=== PATIENT | female | born 1945 | race Caucasian/White ===

== ENCOUNTER 2018-08-18 09:47 | Inpatient (IN) ==
--- NOTE | 2018-07-27 11:00 | PAT Medication Instructions ---
Medication Instructions Date of Service July 27, 2018 Home Medications amlodipine 5 mg PO QAM ascorbic acid (vitamin C) 500 mg PO DAILY aspirin [Aspir-81] 81 mg PO DAILY atorvastatin 20 mg PO QAM cholecalciferol (vitamin D3) 1,000 unit PO DAILY estradiol 1 dose TOPICAL DIRECTED furosemide 20 mg PO NEEDED garlic 1,000 mg PO DAILY lisinopril 20 mg PO QAM multivitamin [Multiple Vitamins] 1 tab PO DAILY multivitamin with minerals [Hair,Skin and Nails] 1 tab PO DAILY prednisone 20 mg PO NEEDED venlafaxine 75 mg PO QAM Continue as directed prednisone 20 mg PO NEEDED STOP taking 2 weeks before surgery garlic 1,000 mg PO DAILY STOP taking 24 hours before surgery estradiol 1 dose TOPICAL DIRECTED DO NOT take the morning of surgery ascorbic acid (vitamin C) 500 mg PO DAILY cholecalciferol (vitamin D3) 1,000 unit PO DAILY furosemide 20 mg PO NEEDED lisinopril 20 mg PO QAM multivitamin [Multiple Vitamins] 1 tab PO DAILY multivitamin with minerals [Hair,Skin and Nails] 1 tab PO DAILY Take morning of surgery With a small sip of water, OTHERWISE NOTHING TO EAT OR DRINK AFTER MIDNIGHT: amlodipine 5 mg PO QAM aspirin [Aspir-81] 81 mg PO DAILY atorvastatin 20 mg PO QAM venlafaxine 75 mg PO QAM Other Notes If you have any questions please call us at [phone] or [phone] or [phone] or [phone]
--- NOTE | 2018-07-27 11:10 | Anesthesiology Consultation ---
Date of Service July 27, 2018 Assessment & Plan (1) Encounter for pre-operative examination: Chart Review Chart Review: Acceptable Risk for Surgery and Patient seen in Pre Admission Testing Consults Requested cardiac (Dr. Santos (08/03)) Patient was seen by cardio on 08/03, who notes that she had an abnormal resting EKG, false positive. No ECHO evidence of old VA or inducible ischemia on dobutamine stress test. "At this time she is considered low risk for perioperative cardiac complications. No further cardiac testing is indicated at this time given her negative dobutamine stress test and benign findings on her outpatient monitor." Teaching & Discussion Pre-Anesthesia Teaching/Discussion Notes: Instructed NPO after midnight before surgery, except medications with 15 cc of water. Medication instructions provided according to the PAT guidelines. History Surgery Operation Date: 08/18/18 08:50 Proposed Procedures p Left Total Knee Arthroplasty - French Harris MD Height/Weight Height: 5 ft 6 in Weight: 86.7 kg Allergies Allergy/AdvReac Type Severity Reaction Status Date / Time No Known Allergies Allergy Verified 07/21/18 10:47 Medications Home Medications Medication Instructions Recorded Confirmed Last Taken amlodipine 5 mg PO QAM 07/21/18 07/21/18 07/20/18 ascorbic acid (vitamin C) [Vitamin 500 mg PO DAILY 07/21/18 07/21/18 Unknown C] aspirin [Aspir-81] 81 mg PO DAILY 07/21/18 07/21/18 07/20/18 atorvastatin 20 mg PO QAM 07/21/18 07/21/18 07/21/18 cholecalciferol (vitamin D3) 1,000 unit PO DAILY 07/21/18 07/21/18 Unknown [Vitamin D3] estradiol 1 dose TOPICAL UD 07/21/18 07/21/18 Unknown furosemide 20 mg PO UD PRN 07/21/18 07/21/18 Unknown garlic 1,000 mg PO DAILY 07/21/18 07/21/18 Unknown lisinopril 20 mg PO QAM 07/21/18 07/21/18 07/21/18 multivitamin [Multiple Vitamins] 1 tab PO DAILY 07/21/18 07/21/18 Unknown multivitamin with minerals 1 tab PO DAILY 07/21/18 07/21/18 Unknown [Hair,Skin and Nails] prednisone 20 mg PO UD PRN 07/21/18 07/21/18 Unknown venlafaxine 75 mg PO QAM 07/21/18 07/21/18 07/21/18 Past Medical History Medical History Bulging disc LUMBAR 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/VISIT PCP/CARDIO...STRESS TEST/HEART MONITOR, F/U ON 08/03/18 [facility] Hyperlipidemia Hypertension Nausea and vomiting after administration of anesthetic agent Osteoarthritis Past Surgical History Surgical History H/O lumbar discectomy L5 History of colonoscopy History of ear surgery RIGHT ACOUSTIC NEUROMA History of hand surgery LEFT TENDON History of total right knee replacement Past Anesthesia History No Hx of Anesthesia Complications and No Family Hx of Anesthesia Complications History of PONV Yes Motion Sickness Screening History of Motion Sickness: Yes Social History Smoking Status: Never smoker Do You Dip or Chew Tobacco: No Hx Alcohol Use: No Hx Substance Use: No substance use type: does not use Exercise / Class Metabolic Activity II 4-5 Yardwork/Stairs/Walk up hill (Able to climb FOS. Denies CP or SOB. ) Review of Systems Patient denies chest pain, shortness of breath, dyspnea on exertion, reflux, cough, wheezing, +palpitations +joint pain (knee, hands, back, neck) Physical Exam Vital Signs BP: 132/77 P: 64 R: 18 T: 97.4 SPO2: 96% on RA ENMT Mouth: + dentures (top only) and + poor dentition (on bottom) Thyromental Distance: > or= 3.5 Finger Breadths (3.5) Mallampati Class: III Neck normal visual inspection and trachea midline Respiratory normal respiratory effort Auscultation: lungs clear to auscultation bilaterally Cardiovascular Rate/Rhythm: regular rate and regular rhythm Heart Sounds: no murmur Vessels: no carotid bruit Neurologic moves all extremities Psychiatric Orientation: alert and oriented x 3 Testing Electrocardiogram Date: 06/01/18 Findings: + NSR @ (67) Sinus arrhythmia. Cannot rule out anterior infarct, age undetermined. When compared with ECG of 11/13/14, T wave inversion now evident in anterior leads. Chest X-Ray Date: 07/27/18 Findings: + NAD Stress Test Date: 07/06/18 Type: DSE Infusion terminated due to achieving MPHR. Patient denied chest discomfort. Frequent supraventricular ectopy noted during infusion, with brief runs non- sustained PSVT near peak infusion and early post-infusion; rare isolated ventricular ectopies noted. Laboratory Results 07/27/18 11:28 07/27/18 11:28 Blood Type O Positive 07/27/18 11:28 Antibody Screen NEGATIVE 07/27/18 11: PT 10.2 Seconds (9.0-12.0) 07/27/18 11: INR 1.0 (0.9-1.1) 07/27/18 11: APTT 23.9 Seconds (21.0-31.0) 07/27/18 11:28
[2018-07-27 11:46] LABS: Basophils # (auto) 0.02 K/uL (0-0.2); Basophils % (auto) 0.3 %; Eosinophils # (auto) 0.08 K/uL (0-0.5); Eosinophils % (auto) 1.3 %; Hematocrit (blood only) 40.9 % (37-47); Hemoglobin 13.7 g/dL (12.0-16.0); Immature Granulocytes # (auto) 0.01 K/uL (0.00-0.02); Immature Granulocytes % (auto) 0.2 %; Lymphocytes # (auto) 1.26 K/uL (1.2-3.4); Lymphocytes % (auto) 21.1 %; Mean Corpuscular Hgb Conc 33.5 g/dL (32-36); Mean Corpuscular Volume 92.5 fL (80-100); Mean Platelet Volume 10.8 fL (7.4-10.4); Monocytes # (auto) 0.68 K/uL (0.11-0.59); Monocytes % (auto) 11.4 %; Neutrophils # (auto) 3.93 K/uL (1.4-6.5); Neutrophils % (auto) 65.7 %; Platelet Count 179 K/uL (130-400); RDW Coefficient of Variation 13.9 % (11.5-14.5); RDW Standard Deviation 47.1 fL (36.4-46.3); Red Blood Count 4.42 M/uL (4.2-5.4); White Blood Count 5.98 K/uL (4.8-10.8)
[2018-07-27 11:54] LABS: Partial Thromboplastin Ratio 0.9; Partial Thromboplastin Time 23.9 Seconds (21.0-31.0); Prothrombin Time 10.2 Seconds (9.0-12.0)
--- NOTE | 2018-07-27 11:57 | XRay Report ---
XR chest Pre-admission PA/Lat CLINICAL HISTORY: 72 years-old Female presenting with preoperative assessment. TECHNIQUE: PA and lateral views of the chest were obtained. COMPARISON: 08/25/2011. FINDINGS: Cardiac silhouette top normal in size. Lungs and pleural spaces clear. Osseous structures normal. Upp er abdomen normal. IMPRESSION: 1. No acute cardiopulmonary disease. Electronically signed by: Ronnie Velasquez M.D. 07/27/2018 11:56 AM
[2018-07-27 14:25] LABS: BUN Creatinine Ratio 19.7 (10-20); Blood Urea Nitrogen 19 mg/dl (7-18); C Reactive Protein < 0.29 mg/dl (0-0.29); Calcium 8.7 mg/dl (8.5-10.1); Carbon Dioxide 28 mmol/L (21-32); Chloride 106 mmol/L (98-107); Creatinine Clr Calc Pharmacy 60.9 ml/min; Est GFR (African American) 70.7; Glucose 91 mg/dl (70-99); Potassium 3.7 mmol/L (3.5-5.1); Sodium 140 mmol/L (136-145)
--- NOTE | 2018-08-13 08:37 | History and Physical Report ---
DATE OF ADMISSION: 08/18/2018 CHIEF COMPLAINT: Left knee pain. HISTORY OF PRESENT ILLNESS: A 72-year-old female who presents for surgical treatment of her left knee. She is well-known to me from previous right knee replacement done in 2011. She is 7 years out and done well. She developed increased pain and discomfort on her left knee. She has been through extensive conservative treatment in the past without adequate relief. She had just been putting up with this as long as she can. Injections and oral medicines do not help much. Her walking tolerance is a couple of blocks at best. She has pain with every step. She has difficulty going up and down steps. The more she walks, the more it hurts. She would like to proceed with surgical treatment. PAST MEDICAL HISTORY: 1. Hypertension. 2. Elevated cholesterol. 3. History of a heart arrhythmia followed by Dr. Santos. 4. Low back pain. 5. Mild obesity with a BMI of 31. PAST SURGICAL HISTORY: 1. Right knee replacement done 09/2011. 2. Left knee scope done in 2010. 3. Back surgery. 4. Ear surgery. ALLERGIES: None. CURRENT MEDICINES: 1. Amlodipine 5 mg a day. 2. Atorvastatin 120 mg. 3. Estradiol. 4. Furosemide 20 mg. 5. Lisinopril 20 mg. 6. Prednisone 20 mg a day as needed. 7. Prochlorperazine 5 mg every 4 hours for nausea. 8. Venlafaxine 75 mg a day. 9. Zantac 150 mg twice a day. SOCIAL HISTORY: A 72-year-old white female. She is from . She is . FAMILY HISTORY: Noncontributory. REVIEW OF SYSTEMS: Negative for diabetes. Denies any chest pain or shortness of breath. No history of DVT or PE. PHYSICAL EXAMINATION: GENERAL: Reveals a healthy pleasant, middle-aged female, looks to be in good health. HEENT: Benign. NECK: Supple. No lymphadenopathy. LUNGS: Clear to auscultation. HEART: Has a regular rate and rhythm. ABDOMEN: Soft, nontender, nondistended. EXTREMITIES: Grossly neurovascularly intact except as follows: Examination of the knee reveals patient walks with bit of a limp. She has got varus alignment to her knee. Bony hypertrophy medially. Small knee effusion. Range of motion 5-110. No instability. She is neurologically intact. Examination of the right knee reveals well-healed incision. Neutral alignment to her knee. No knee effusion. Range of motion 0-120. X-RAYS: X-rays of the left knee reviewed. Shows advanced left knee medial compartment DJD. She has complete loss of medial joint space. She has subchondral sclerosis. The right knee replacement looks to be in good position. ASSESSMENT: A 72-year-old white female with 7 years out from right knee replaced with advanced left knee degenerative joint disease. She has failed conservative treatment and would like to proceed with left knee replacement. PLAN: We will take her to the operating room and do a left total knee replacement. The risks and benefits of this procedure were explained to the patient including but not limited to DVT, PE, , infection, neurological injury, vascular injury, bleeding problem, pain, limited range of motion, stiffness, failure to relieve symptoms, incomplete relief of symptoms, need for further surgery future, fracture, leg length inequality, nerve palsy, etc. The patient understands and desires to proceed. Informed consent was obtained. She does have a history of some steroid use with fairly significant doses. We may give her some stress dose steroids preoperatively. She is noticed to hold her lisinopril the morning of surgery. As far as discharge plans, she is planning to be discharged home and do outpatient therapy.
[~2018-08-18 09:47] MED LIST: ACETAMINOPHEN 500 MG TAB PO SCH; BUPIVACAINE 0.5 % 5 MG/1 ML PF 10ML VIAL ONE; BUPIVACAINE LIPOSOME/PF 266 MG, BUPIVACAINE/EPINEPHRINE 50 ML, SODIUM CHLORIDE 0.9% 30 ... INFIL SCH; CEFAZOLIN 2000MG 2,000 MG/15 ML SYR IV SCH; EPINEPHrine INJ 1 MG/ML AMP ONE; FAMOTIDINE 20 MG TAB PO SCH; GABAPENTIN 300 MG PO SCH; LR 500ML BOLUS, THEN 15ML/HR IV SCH; LR 60ML/HR IV SCH; METOCLOPRAMIDE HCL 10 MG TABLET PO SCH; ROPIVACAINE 0.5% 5 MG/ML 30 ML VIAL ONE; TRANEXAMIC ACID 1,000 MG **IV Intra-op IV SCH
--- NOTE | 2018-08-18 11:08 | History & Physical Bridge Note ---
Date of Service August 18, 2018 History & Physical Bridge Note I have examined the patient, reviewed the History & Physical and in the interval since the performance of the History & Physical I have noted the following changes of clinical significance: no changes noted
[2018-08-18] MEDS ORDERED: MIDAZOLAM HCL 1 MG/ML 2ML VIAL ONE (13:02)
[2018-08-18] MEDS ORDERED: SODIUM CHLORIDE 0.9% PF 50 ML VIAL ONE (13:07)
[2018-08-18] MEDS ORDERED: BACITRACIN INJ 50,000 UNIT VIAL ONE (13:07)
[2018-08-18] MEDS ORDERED: BUPIVACAINE LIPOSOME 1.3% 266 MG/20 ML VIAL ONE (13:08)
[2018-08-18] MEDS ORDERED: BUPIVACAINE 0.25% 30 ML VIAL ONE (13:10)
[2018-08-18] MEDS ORDERED: LIDOCAINE HCL 2% 2 ML VIAL/AMP(20MG/ML) INFIL ONE (14:20)
[2018-08-18] MEDS ORDERED: PROPOFOL IV EMULSION 10 MG/ML 20 ML VIAL IV ONE (14:20)
--- NOTE | 2018-08-18 15:38 | Post Operative Brief Note ---
Immediate Post Op Note v1 Date of Surgery August 18, 2018 Pre & Post Diagnosis Operation Date: 08/18/18 12:30 Pre-Op Diagnosis: Left Knee Degenerative Joint Disease Post-Op Diagnosis: Left Knee Degenerative Joint Disease Procedure Operation Date: 08/18/18 12:30 Actual Procedures p Left Total Knee Replacement(Left) - French Harris MD Surgeon French Harris MD [employer] Guidance Counselor Jean Claude, PAC Estimated Blood Loss 50 Findings Consistent with Post-Op Diagnosis Fluids 1100 cc Specimens Left Knee Anesthesia Type Spinal MAC Complications none Disposition Accompanied Patient To Recovery: No Disposition: Recovery Room
--- NOTE | 2018-08-18 15:56 | XRay Report ---
XR knee LT 2V routine CLINICAL HISTORY: Surgical Post Op COMPARISON: None. DISCUSSION: Total left knee arthroplasty. Good contact between prosthetic and underlying bone. Expect ed soft tissue postoperative change. IMPRESSION: Anatomic alignment post total left knee arthroplasty. The above report was generated using voice recognition software. It may contain grammatical, syntax or spelling errors. Electronically signed by: Alber Owens M.D. 08/18/2018 3:54 PM
[2018-08-18] MEDS ORDERED: predniSONE 20 MG TAB PO PRN (16:50)
[2018-08-18] MEDS ORDERED: SODIUM CHLORIDE 0.9% 1000ML 1,000 ML IV SCH (16:50)
[2018-08-18] MEDS ORDERED: ALUMINUM/MAGNESIUM SUSP 30 ML UDC PO PRN (16:50)
[2018-08-18] MEDS ORDERED: FUROSEMIDE 20 MG TAB PO PRN (16:50)
[2018-08-18] MEDS ORDERED: HYDROmorphone INJ 0.5 MG/0.5 ML SYR IV PRN (16:50)
[2018-08-18] MEDS ORDERED: NALOXONE HCL 0.4 MG/1 ML VIAL/CARP IV PRN (16:50)
[2018-08-18] MEDS ORDERED: BISACODYL 10 MG SUPP PR PRN (16:50)
[2018-08-18] MEDS ORDERED: MAGNESIUM HYDROXIDE SUSP 30 ML UDC PO PRN (16:50)
[2018-08-18] MEDS ORDERED: METOCLOPRAMIDE HCL INJ 5 MG/ML 2 ML VIAL IV PRN (16:50)
--- NOTE | 2018-08-18 17:08 | Anesthesiology Progress Note ---
Date of Service August 18, 2018 Anesthesia Post Procedure Vital Signs Vital Signs: Temp Pulse Pulse Resp BP Pulse Ox 08/18/18 17:06 61 17 132/83 98 08/18/18 16:30 36.3 C L 58 L 16 136/82 99 08/18/18 16:29 55 L 18 123/74 98 08/18/18 16:15 56 L 17 129/86 100 08/18/18 16:00 36.3 C L 60 13 135/76 100 08/18/18 15:50 62 18 121/61 100 08/18/18 15:44 36.3 C L 65 15 110/56 L 100 08/18/18 10:21 36.4 C L 74 20 170/84 H 94 Notes Mental Status: alert / awake / arousable Patient Amnestic to Procedure: Yes Nausea / Vomiting: adequately controlled Pain: adequately controlled Airway Patency, RR, SpO2: stable & adequate BP & HR: stable & adequate Hydration State: stable & adequate Neuraxial Anesthesia: was administered and sensory block is resolving Anesthetic Complications: no major complications apparent
[2018-08-18] MEDS: ESTRADIOL TRANSDERMAL SYSTEM 0.1 MG TDSY TD SCH (18:07)
[2018-08-18] MEDS: FERROUS GLUCONATE 324 MG TAB PO SCH (18:08)
[2018-08-18] MEDS: KETOROLAC TROMETHAMINE 15 MG/ML VIAL IV SCH (18:08)
[2018-08-18] MEDS: CEFAZOLIN 2000MG 2,000 MG/15 ML SYR IV SCH (20:25)
[2018-08-18] MEDS: ASPIRIN 81 MG ECTAB PO SCH (20:25)
[2018-08-18] MEDS: ACETAMINOPHEN 500 MG TAB PO SCH (20:26)
[2018-08-18] MEDS: DOCUSATE SODIUM 100 MG CAP PO SCH (20:26)
[2018-08-18] MEDS: SENNA 8.6 MG TAB PO SCH (20:26)
[2018-08-18] MEDS ORDERED: TRANEXAMIC ACID 1,000 MG in 0.9 % SODIUM CHLORIDE 100 ML IV SCH (21:30)
--- NOTE | 2018-08-19 00:14 | Operative Report ---
DATE OF OPERATION: 08/18/2018 SURGEON: French Harris MD TRACK HOE OPERATOR: ELIU Aceves PREOPERATIVE DIAGNOSIS: Left knee degenerative joint disease. POSTOPERATIVE DIAGNOSIS: Left knee degenerative joint disease. PROCEDURE PERFORMED: Left cemented posterior stabilized total knee arthroplasty. COMPLICATIONS: None. ESTIMATED BLOOD LOSS: 50 mL FLUID REPLACEMENT: 1100 mL crystalloid fluid replacement. TOURNIQUET TIME: 51 minutes at 300 mmHg. ANESTHESIA: Spinal with adductor canal block. DRAINS: None. SPECIMENS: Left knee sent for pathology. OPERATIVE INDICATIONS: The patient is a 72-year-old female who has had a long history of knee problems. She underwent a right knee replacement years ago and has done well from this but had quite a bit of pain initially. She has been putting up with a lot of arthritic pains in her left knee over the past several years. She has been through extensive conservative treatment without adequate relief. She has now elected to proceed with total knee arthroplasty. OPERATIVE FINDINGS: Operative findings were advanced left knee DJD with grade 4 [id number] disease in the medial and patellofemoral compartments. She had a varus deformity to her knee with a moderate sized knee effusion. OPERATIVE IMPLANTS: Operative implants consisted of: 1. Biomet Vanguard size left 62.5 posterior stabilized femoral component. 2. Biomet size 67 tibial tray. 3. A 10mm posterior stabilized polyethylene insert. 4. The 28 x 8 all-poly patella. OPERATIVE PROCEDURE: The patient was taken to the operating room, identified and placed on the operating table in supine position. All contact areas were appropriately padded. IV antibiotics were provided by anesthesia team. A spinal anesthetic and adductor canal block had been provided in the holding area. Abebe catheter was placed in sterile fashion. The left thigh tourniquet was then placed and left lower extremity was then prepped and draped in usual sterile fashion. Left leg was elevated and exsanguinated with Esmarch and tourniquet placed at 300 mmHg. An anterior approach to the left knee was then performed through a longitudinal incision centered over the patella. Sharp dissection was carried through subcutaneous tissues down to the level of the extensor mechanism. Medial parapatellar arthrotomy incision was made. Some subperiosteal dissection was carried out medially. The fat pad was resected from beneath the patellar tendon. Lateral patellofemoral ligament was released. The patella was everted and knee was flexed. The osteophytes were taken off the distal femur. The ACL and PCL were released from the distal femur and the tibia subluxated anteriorly. The external tibial alignment jig was then placed in the anterior face of the tibia and adjusted 14 mm medially. Proximal tibial cut was made to remove a millimeter of bone from most deficient aspect of the medial tibial plateau. The tibia was sized to a size 67. Some osteophytes were taken off medial and posteromedially. Attention was then drawn to the femur. The distal femur was entered with a sharp drill bit. Intramedullary canal was suctioned. The left 5 degree valgus cutting guide was placed. Distal femoral cutting block was pinned in place. Distal femoral cut was made to take an additional 3 mm of bone off the distal femur. Femur was then sized to a size 62.5. The AP cutting block was pinned parallel to the epicondylar axis, which was 5 degrees of external rotation. The anterior cut, anterior chamfer cut, posterior cut, posterior chamfer cuts were made. Box cutting guide was placed and adjusted slightly lateral and the box cut was made. The knee was flexed. The remnants of the medial and lateral menisci were excised. The osteophytes were taken off the posterior aspect of the femur. A trial femoral component was placed. Tibial tray was pinned in maximum external rotation and drill and stem punch were used to create defect in proximal tibia for the tibial tray. The knee was then trialed and the 10 mm insert fit most appropriately. Attention was then drawn to the patella. The patella was cleaned of all soft tissues. Patella thickness measured 20 mm in thickness. It was cut down to 12. It was sized to a size 28 patella. Lug holes were drilled for a 28 patella. Lateral osteophyte was removed. Patella button was placed. Knee was taken through range of motion, patella tracked nicely with no thumbs test. Attention was then drawn towards placement of permanent components. All trial components were removed. Bone plug was placed in the distal femur to limit blood loss. A double batch of Palacos G cement was mixed. A Biomet Vanguard size 62.5 left posterior stabilized femoral component, size 67 tibial tray, 10 mm posterior stabilized polyethylene insert, 28 x 8 all-poly patella then cemented in place. Knee was brought into full extension until cement hardened. A final cement check was then performed. Pericapsular tissues were injected with a total of 100 mL of a combination of 20 mL of Exparel, 30 mL of normal saline, 50 mL of 0.25% Marcaine with epinephrine. The patient did receive 1 g of tranexamic acid. The tourniquet was then let down for final tourniquet time of 51 minutes. Hemostasis was assured with the use of electrocautery. The extensor mechanism was then closed with a combination of #1 PDS suture and #1 Vicryl suture in a [id number] fashion. Extensor mechanism was checked and found to be intact. The subcutaneous tissue was then closed with #2 Dexon suture in buried interrupted fashion. Skin was closed with skin jeannette. Leg was then cleaned and dried and a sterile dressing of Xeroform, 4 x 4, sterile cast padding, and Anil bandage were applied. The patient then transferred to the recovery room in stable condition. The patient tolerated the procedure without complications. All needle and sponge counts were correct at the end of the operation. I attest to the content of the Intraoperative Record and any orders documented therein. Any exception s are noted below.
[2018-08-19] MEDS: KETOROLAC TROMETHAMINE 15 MG/ML VIAL IV SCH ×5 (00:16→23:35)
[2018-08-19] MEDS: ACETAMINOPHEN 500 MG TAB PO SCH ×3 (05:41→21:32)
[2018-08-19] MEDS: CEFAZOLIN 2000MG 2,000 MG/15 ML SYR IV SCH (05:42)
[2018-08-19 06:09] LABS: Hematocrit (blood only) 39.3 % (37-47); Hemoglobin 13.2 g/dL (12.0-16.0); Mean Corpuscular Hgb Conc 33.6 g/dL (32-36); Mean Corpuscular Volume 93.6 fL (80-100); Mean Platelet Volume 11.2 fL (7.4-10.4); Platelet Count 116 K/uL (130-400); RDW Coefficient of Variation 13.7 % (11.5-14.5)
[2018-08-19 06:41] LABS: BUN Creatinine Ratio 15.5 (10-20); Calcium 8.1 mg/dl (8.5-10.1); Creatinine Clr Calc Pharmacy 59.2 ml/min; Est GFR (Non-African American) 59.5; Potassium 3.7 mmol/L (3.5-5.1)
[2018-08-19] MEDS: ONDANSETRON INJ 2 MG/ML 2 ML VIAL IV PRN ×2 (07:48→14:18)
[2018-08-19] MEDS: TRAMADOL HCL 50 MG TABLET PO PRN (08:56)
[2018-08-19] MEDS: MULTIVITAMIN TAB PO SCH ×2 (08:58→09:18)
[2018-08-19] MEDS: DOCUSATE SODIUM 100 MG CAP PO SCH ×3 (08:58→20:28)
[2018-08-19] MEDS: ASCORBIC ACID 500 MG TAB PO SCH (08:59)
[2018-08-19] MEDS: VENLAFAXINE HCL XR 75 MG CAPXR PO SCH (08:59)
[2018-08-19] MEDS ORDERED: MULTIVITAMIN WITH MINERALS PO SCH (09:00)
[2018-08-19] MEDS: CHOLECALCIFEROL 1,000 UNITS TAB PO SCH (09:00)
[2018-08-19] MEDS: LISINOPRIL 20 MG TAB PO SCH (09:00)
[2018-08-19] MEDS: AMLODIPINE BESYLATE 5 MG TAB PO SCH (09:01)
[2018-08-19] MEDS: ATORVASTATIN 20 MG TAB PO SCH (09:02)
[2018-08-19] MEDS: ESTRADIOL TRANSDERMAL SYSTEM 0.1 MG TDSY TD SCH (09:14)
[2018-08-19] MEDS: FERROUS GLUCONATE 324 MG TAB PO SCH ×2 (10:29→17:48)
[2018-08-19] MEDS: ASPIRIN 81 MG ECTAB PO SCH ×2 (10:29→20:27)
--- NOTE | 2018-08-19 10:58 | Progress Note ---
DATE: 08/19/2018 SUBJECTIVE: The patient is a 72-year-old female postop day #1 of her left total knee arthroplasty. She is doing pretty well on today's visit. Pain is very well controlled. She denies any chest pain, shortness of breath. She is not feeling dizzy or lightheaded. OBJECTIVE: VITAL SIGNS: Her blood pressure is 152/81, pulse 90, respiratory rate 16, temperature is 36.6, 97% on room air. GENERAL: Reveals a 72-year-old pleasant female. She is awake, alert and oriented. She is very comfortable. No real description of any pain. EXTREMITIES: Examination of her left leg, she is able to dorsiflex and plantarflex her foot and her ankle without difficulty. She has no ____ tenderness. NEUROLOGIC: Intact. CURRENT LABORATORY DATA: Shows a white blood cell count of 7.8, hemoglobin 13.2, hematocrit 39.3. Electrolytes are stable. ASSESSMENT AND DIAGNOSES: A 72-year-old female postop day #1 from a total left knee arthroplasty. She is doing very well in the short-term period. Pain is well controlled. She is neurologically intact. PLAN: 1. At this time, continue with DVT prophylaxis including TERRANCE hose stockings, SCDs and aspirin twice a day. 2. PT, OT. She can be weightbearing as tolerated on her left lower extremity. 3. Continue with current pain control regimen. 4. Disposition: Planning on discharge to home with Home Health Services tomorrow.
[2018-08-19] MEDS: SENNA 8.6 MG TAB PO SCH (20:28)
[2018-08-20] MEDS: ONDANSETRON INJ 2 MG/ML 2 ML VIAL IV PRN (03:48)
[2018-08-20] MEDS: ACETAMINOPHEN 500 MG TAB PO SCH (05:25)
[2018-08-20] MEDS: KETOROLAC TROMETHAMINE 15 MG/ML VIAL IV SCH (05:25)
[2018-08-20] MEDS: DOCUSATE SODIUM 100 MG CAP PO SCH (09:13)
[2018-08-20] MEDS: AMLODIPINE BESYLATE 5 MG TAB PO SCH (09:13)
[2018-08-20] MEDS: FERROUS GLUCONATE 324 MG TAB PO SCH (09:13)
[2018-08-20] MEDS: ASCORBIC ACID 500 MG TAB PO SCH (09:13)
[2018-08-20] MEDS: ATORVASTATIN 20 MG TAB PO SCH (09:13)
[2018-08-20] MEDS: CHOLECALCIFEROL 1,000 UNITS TAB PO SCH (09:13)
[2018-08-20] MEDS: MULTIVITAMIN TAB PO SCH ×2 (09:14→09:20)
[2018-08-20] MEDS: ASPIRIN 81 MG ECTAB PO SCH (09:14)
[2018-08-20] MEDS: VENLAFAXINE HCL XR 75 MG CAPXR PO SCH (09:14)
[2018-08-20] MEDS: LISINOPRIL 20 MG TAB PO SCH (09:15)
[2018-08-20] MEDS: TRAMADOL HCL 50 MG TABLET PO PRN (09:19)
--- NOTE | 2018-08-21 07:41 | Discharge Summary ---
Date of Service August 29, 2018 Discharge Data Consultations 08/18/18 16:50 Consult Case Management - Discharge Planning Routine Procedures Performed Operation Date: 08/18/18 12:30 Actual Procedures p Left Total Knee Replacement(Left) - French Harris MD
--- NOTE | 2018-08-27 22:49 | Discharge Summary ---
ADMITTING PHYSICIAN AND SURGEON: French Harris MD ADMITTING DIAGNOSIS: Left knee degenerative joint disease. SURGERY PERFORMED: Left total knee arthroplasty. SECONDARY DIAGNOSES: Hypertension, elevated cholesterol, history of a heart arrhythmia, low back pain and mild obesity. CONSULTS: None obtained. HISTORY AND PHYSICAL EXAMINATION: Well documented in the patient's chart. HOSPITAL COURSE: The patient was admitted on 08/18/2018, underwent total knee arthroplasty, tolerated the procedure well. There were no complications. She was transferred to the PACU postoperatively and later to the Orthopedic for further care. She was given Ancef for antibiotic prophylaxis, TERRANCE stockings and sequential compression devices and aspirin for deep venous thrombosis prophylaxis. Hemoglobin, hematocrit and vital signs were monitored during hospital stay and remained stable. She did not require any blood transfusions. There were no complications. By postoperative day 1, she was tolerating a regular diet, pain was controlled with oral pain medicine. She was participating in physical therapy. On postoperative day 1, she was discharged home. She was given printed discharge instructions including new prescriptions for extra strength Tylenol, aspirin, iron supplement and tramadol. Continue her home medicines exception of her home dose of aspirin which was changed. Continue physical therapy, weightbearing as tolerated, TERRANCE stockings and follow up approximately 2 weeks postoperatively or sooner if any problems or concerns.
== END 2018-08-20 09:46 | disposition home or self-care (01) | DRG 470 ==
LOC: ASU 09:47 → 3E 15:43

== ENCOUNTER 2025-02-22 23:51 | Observation (INO) ==
--- NOTE | 2025-02-23 00:05 | Emergency Department Note ---
Impression & Plan Lower gastrointestinal hemorrhage Admission ED Provider Note HPI: History obtained from patient. The patient is a 79-year-old female who presents the emergency department with a chief complaint of lower abdominal pain as well as blood per rectum today. Patient states that her symptoms started at about 4 PM. Patient states that every 30 to 40 minutes she would have another loose bowel movement. Patient denies any vomiting. Patient states she is not on any blood thinners. On arrival here to the ED the patient is mildly hypertensive, she is otherwise hemodynamically stable and appears to be in no acute distress. ROS: - Per HPI Differential Diagnosis: Hemorrhagic external hemorrhoids, hemorrhagic internal hemorrhoids, other lower GI bleed, acute colitis, diverticulitis flare, viral gastroenteritis, ischemic colitis, amongst other potential pathologies. *Outpatient medications and allergy history reviewed. PE: General: Alert HEENT: Normocephalic, trachea midline Eyes: Extraocular eye movement is intact, no scleral erythema Pulmonary: Clear to auscultation bilaterally, no wheezing Cardio: Regular rate and rhythm GI: Abdomen is soft to palpation, there is moderate tenderness in the lower abdomen bilaterally to palpation, rectal examination performed with female RN at the bedside shows a large external hemorrhoid without any obvious active bleeding from the hemorrhoid itself, there is some blood surrounding the rectal vault : No suprapubic tenderness MSK: No evidence of trauma or malformation of the extremities, no edema Skin: No evidence of rash Neuro: Alert, no focal deficits Psychiatric: Cooperative INDEPENDENT INTERPRETATIONS: playground monitor: (As interpreted by myself): - An order was placed for continuous cardiac monitoring - Patient was noted to be in sinus rhythm with a rate of 70 EKG: (As interpreted by myself): Rate: 67 Rhythm: Sinus rhythm Intervals: Within normal limits ST changes: No ST elevation Time: 0021 Interventions provided in ED: - IV fluid bolus, IV morphine, IV Zofran Medical Decision Making: IV was established and lab work obtained, patient was placed on property assessment monitor. Lab work shows no leukocytosis, hemoglobin is normal, platelet count is slightly low at 122, CMP does not show any evidence of any critical findings. Troponin is slightly elevated at 15.6, EKG per my interpretation shows sinus rhythm without any acute ischemic changes. Urinalysis does not show any evidence of blood or infection. CT imaging of the abdomen pelvis was obtained and shows evidence of a diffuse colitis more severe in the left hemicolon. On my reevaluation the patient states that she is having some worsening abdominal pain and therefore she was agreeable for IV analgesia. Patient had several other bowel movements while she was here in the ED that were grossly bloody according to the bedside RN. Stool PCR therefore was ordered, following my evaluation of the patient we will plan for admission given her ongoing lower GI bleeding, elevated troponin, and finding of colitis on CT imaging. Case was discussed with the on-call hospitalist, Dr. Nash, and the patient was placed for admission in stable condition. Consultants/Discussions held with other healthcare providers: - Hospitalist, Dr. Nash Disposition discussion held by myself with: - Patient Diagnosis: 1. Lower GI bleed, acute 2. Thrombocytopenia, acute 3. 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/VISIT PCP/CARDIO...STRESS TEST/HEART MONITOR, F/U ON 08/03/18 [facility] Bulging disc LUMBAR Osteoarthritis Hyperlipidemia Hypertension Surgical History H/O lumbar discectomy L5 Nausea and vomiting after administration of anesthetic agent History of hand surgery LEFT TENDON History of ear surgery RIGHT ACOUSTIC NEUROMA History of colonoscopy History of total right knee replacement Social History Smoking Status: Never smoker Do You Dip or Chew Tobacco: No; Hx Alcohol Use: No Hx Substance Use: No Preferred Language: Portuguese Communication Ability: Effective Analytical Manager Required: No Beliefs That Will Affect Care: None Current Living Situation: Spouse Feels Safe at Home: Yes Assistive Devices: Walker Allergies Allergies Allergy/AdvReac Type Severity Reaction Status Date / Time No Known Allergies Allergy Verified 02/23/25 01:09 Home Meds Home Medications Medication Instructions Recorded Confirmed amlodipine 5 mg tablet 2.5 mg PO DAILY 08/31/22 02/23/25 aspirin 81 mg tablet,delayed 81 mg PO DAILY 08/31/22 02/23/25 release atorvastatin 20 mg tablet 20 mg PO DAILY 08/31/22 02/23/25 furosemide 20 mg tablet (Lasix) 20 mg PO DAILY PRN Edema 08/31/22 02/23/25 lisinopril 20 mg tablet 20 mg PO DAILY 08/31/22 02/23/25 multivitamin 1 tab PO DAILY 08/31/22 02/23/25 prochlorperazine maleate 5 mg 5 mg PO Q6 PRN Nausea 08/31/22 02/23/25 tablet omeprazole 20 mg capsule,delayed 20 mg PO QAM 09/24/24 02/23/25 release escitalopram oxalate 10 mg tablet 10 mg PO DAILY 02/23/25 02/23/25 ondansetron 4 mg disintegrating 8 mg PO Q6H PRN NAUSEA/VOMITING 02/23/25 02/23/25 tablet scopolamine base 1 mg over 3 days 1 mg transdermal Q72H 02/23/25 02/23/25 transdermal patch Results & Data (ED) Vital Signs Vital Signs - 24 hr 02/22/25 23:54 02/23/25 00:24 02/23/25 00:24 Temperature 36.5 C Temperature Source Temporal Artery Scan Pulse Rate 74 76 70 Pulse Rate [Apical] Respiratory Rate 16 20 Respiratory Effort / Characteristics Non-Labored Spontaneous Respiratory Depth Normal Respiratory Pattern Regular Blood Pressure 161/87 H Blood Pressure [Right Arm] Blood Pressure Mean 111 Blood Pressure Mean [Right Arm] Blood Pressure Position [Right Arm] Pulse Oximetry 98 97 Oxygen Delivery Method Room Air Room Air Sepsis Recent Fever Within 48 Hours No Sepsis New/Unexplained Change in Mental Status N/A Sepsis Action Taken by Nursing No Action Required 02/23/25 01:45 Temperature Temperature Source Pulse Rate Pulse Rate [Apical] 73 Respiratory Rate 16 Respiratory Effort / Characteristics Non-Labored Spontaneous Respiratory Depth Normal Respiratory Pattern Regular Blood Pressure Blood Pressure [Right Arm] 154/89 H Blood Pressure Mean Blood Pressure Mean [Right Arm] 110 Blood Pressure Position [Right Arm] Lying Pulse Oximetry 95 Oxygen Delivery Method Room Air Sepsis Recent Fever Within 48 Hours Sepsis New/Unexplained Change in Mental Status Sepsis Action Taken by Nursing Laboratory Data 02/23/25 00:16 02/23/25 00:16 Lab Results 02/23/25 02/23/25 02/23/25 Range/Units 00:06 00:16 02:13 WBC 9.59 (4.8-10.8) K/ul RBC 4.85 (4.20-5.40) M/uL Hgb 14.8 (12.0-16.0) g/dl Hct 44.4 (37.0-47.0) % MCV 91.5 (80.0-100.0) fL MCH 30.5 (25.0-34.0) pg MCHC 33.3 (32.0-36.0) g/dL RDW Std Deviation 44.7 (36.4-46.3) fL RDW Coeff of Alix 13.2 (11.5-14.5) % Plt Count 122 L (130-400) K/uL MPV 11.1 (9.4-12.4) fL Immature Gran % (Auto) 0.2 % Neut % (Auto) 84.0 % Lymph % (Auto) 8.9 % [place] % (Auto) 6.5 % Eos % (Auto) 0.1 % Baso % (Auto) 0.3 % Neut # (Auto) 8.06 H (1.40-6.50) K/uL Lymph # (Auto) 0.85 L (1.20-3.40) K/uL [place] # (Auto) 0.62 H (0.11-0.59) K/uL Eos # (Auto) 0.01 (0.00-0.50) K/uL Baso # (Auto) 0.03 (0.00-0.20) K/uL Immature Gran # (Auto) 0.02 (0.01-0.20) K/uL PT 11.2 (9.0-12.0) Seconds INR 1.0 (0.9-1.1) Sodium 138 (136-145) mmol/L Potassium 3.8 (3.5-5.1) mmol/L Chloride 104 (98-107) mmol/L Carbon Dioxide 27 (21-32) mmol/L Anion Gap 7 (3-11) BUN 12 (6-23) mg/dl Creatinine 1.06 (0.6-1.2) mg/dl Est Cr Clr Drug Dosing 40.9 ml/min eGFR 53.77 BUN/Creatinine Ratio 11.3 (10-20) Glucose 112 H (70-99(Fasting)) mg/dl Calcium 9.3 (8.6-10.3) mg/dl Total Bilirubin 1.0 (0.2-1.0) mg/dl AST 16 (13-39) U/L ALT 11 (7-52) U/L Alkaline Phosphatase 46 (34-104) U/L Troponin I High Sens 15.6 H (0-14) pg/ml Total Protein 6.5 (6.0-8.3) gm/dl Albumin 4.2 (3.4-5.0) gm/dl Globulin 2.3 L (2.5-4.0) gm/dl Albumin/Globulin Ratio 1.8 (0.9-2) Lipase 21 (11-82) U/L Urine Color Yellow Urine Appearance Clear (Clear) Urine pH 7.0 (4.5-7.5) Ur Specific [place] 1.030 (1.000-1.030) Urine Protein Negative (Negative) Urine Glucose (UA) Negative (Negative) Urine Ketones Negative (Negative) Urine Blood Negative (Negative) Urine Nitrite Negative (Negative) Urine Bilirubin Negative (Negative) Urine Urobilinogen Negative (Negative) Ur Leukocyte Esterase Negative (Negative) Urine Comment Blood Type O Positive Antibody Screen NEGATIVE Administered Medications Discontinued Medications Sodium Chloride (Nss) 1,000 mls @ 999 mls/hr IV .Q1H1M STA Stop: 02/23/25 00:59 Last Infusion: 02/23/25 02:20 Dose: Infused Documented By: Admin: 02/23/25 00:30 Dose: 999 mls/hr Documented By: Ioversol (Optiray 320 100ml) 94 ml IV ONCE ONE Stop: 02/23/25 01:39 Last Admin: 02/23/25 01:38 Dose: 94 ml Documented By: ALL Imaging Data Radiologist's Impression: Abdomen/Pelvis CT 02/23/25 00:04 EXAM: CT abd pelvis IV con only CLINICAL HISTORY: Lower abdominal pain, blood per rectum TECHNIQUE: Contiguous axial images were obtained from the level of the diaphragm to the pubic symphysis with intravenous contrast. Coronal and sagittal reconstructions were likewise performed and indicated to increase the sensitivity for detecting clinically relevant pathology. If IV contrast material had not been administered, the likelihood of detecting abnormalities relevant to the patient's condition would have been substantially decreased. CT scan was performed according to ALARA (as low as reasonably achievable). COMPARISON: September 24/2025 19:31:29 MERCHANDISE ASSOCIATE FINDINGS: The visualized lung bases are clear. The liver is normal in size and attenuation. No focal liver lesions are seen. There is no intra or extrahepatic biliary ductal dilatation. Hepatic vasculature is patent. The gallbladder is present. The spleen, pancreas, and adrenal glands are unremarkable. The kidneys are normal in size and attenuation. There is no hydronephrosis or perinephric fat stranding. No renal calculi or renal masses are identified. The ureters are normal in caliber and no ureteral calculi are seen. The bladder is normal in contour. Pelvic viscera are unremarkable. Diffuse mucosal edema with adjacent fat stranding is noted involving entire length of colon, predominantly left hemicolon - suggest possibility of colitis changes. Multiple small uncomplicated sigmoid colonic diverticulosis Mild free fluid with adjacent fat stranding is noted in pelvis. No imaging evidence of appendicitis. Abdominal and pelvic vasculature is patent. No aggressive appearing osseous lesions are identified. IMPRESSION: Diffuse mucosal edema with adjacent fat stranding is noted involving entire length of colon, predominantly left hemicolon - suggest possibility of colitis changes.-new finding. Multiple small uncomplicated sigmoid colonic diverticulosis-stable. Mild free fluid with adjacent fat stranding is noted in pelvis.-new finding. Electronically signed by Nishant Hurt 02-23-2025 02:40 AM Discharge Plan Visit Data Chief Complaint: Rectal Bleed Stated Complaint: RECTAL BLOOD, DIARHHEA, ABD PAIN ED Provider: Alber Kwong Discharge Problem: Lower gastrointestinal hemorrhage Patient Disposition: Admitted As Inpatient Condition: Fair Forms Stand Alone Forms: [facility], Important Visit Information Prescriptions Prescriptions: No Action multivitamin Tablet 1 tab PO DAILY atorvastatin 20 mg tablet 20 mg PO DAILY prochlorperazine maleate 5 mg tablet 5 mg PO Q6 PRN (Reason: Nausea) lisinopril 20 mg tablet 20 mg PO DAILY amlodipine 5 mg tablet 2.5 mg PO DAILY aspirin [Aspir-Low] 81 mg Tablet,Delayed Release (Dr/Ec) 81 mg PO DAILY furosemide [Lasix] 20 mg Tablet 20 mg PO DAILY PRN (Reason: Edema) omeprazole 20 mg capsule,delayed release(DR/EC) 20 mg PO QAM scopolamine base 1 mg over 3 days patch 3 day 1 mg transdermal Q72H escitalopram oxalate 10 mg tablet 10 mg PO DAILY ondansetron 4 mg tablet,disintegrating 8 mg PO Q6H PRN (Reason: NAUSEA/VOMITING) Referrals Referrals: Silvia Gallegos MD [Primary Care Provider] -
[2025-02-23] MEDS: SODIUM CHLORIDE 0.9% 1,000 ML IV STA (00:30)
[2025-02-23 00:46] LABS: Hematocrit (blood only) 44.4 % (37.0-47.0); Hemoglobin 14.8 g/dl (12.0-16.0); Immature Granulocytes # (auto) 0.02 K/uL (0.01-0.20); Immature Granulocytes % (auto) 0.2 %; Mean Corpuscular Hemoglobin 30.5 pg (25.0-34.0); Mean Corpuscular Volume 91.5 fL (80.0-100.0); Platelet Count 122 K/uL (130-400); RDW Standard Deviation 44.7 fL (36.4-46.3); Red Blood Count 4.85 M/uL (4.20-5.40); White Blood Count 9.59 K/ul (4.8-10.8)
[2025-02-23 01:00] LABS: Alanine Aminotransferase 11.0 U/L (7-52); Albumin Globulin Ratio 1.8 (0.9-2); Alkaline Phosphatase 46.0 U/L (34-104); Anion Gap 7.0 (3-11); Bilirubin,Total 1.0 mg/dl (0.2-1.0); Blood Urea Nitrogen 12.0 mg/dl (6-23); Calcium 9.3 mg/dl (8.6-10.3); Carbon Dioxide 27.0 mmol/L (21-32); Chloride 104.0 mmol/L (98-107); Creatinine Clr Calc Pharmacy 40.9 ml/min; Globulin 2.3 gm/dl (2.5-4.0); Glucose 112.0 mg/dl (70-99(Fasting)); Lipase 21.0 U/L (11-82); Potassium 3.8 mmol/L (3.5-5.1); Sodium 138.0 mmol/L (136-145); Total Protein 6.5 gm/dl (6.0-8.3)
[2025-02-23 01:12] LABS: INR 1.0 (0.9-1.1); Prothrombin Time 11.2 Seconds (9.0-12.0)
[2025-02-23] MEDS: OPTIRAY 320 100ml IV ONE (01:38)
[2025-02-23 02:40] LABS: Appearance Urine Clear (Clear); Glucose Urine UA Negative (Negative)
--- NOTE | 2025-02-23 02:41 | CT Scan Report ---
EXAM: CT abd pelvis IV con only CLINICAL HISTORY: Lower abdominal pain, blood per rectum TECHNIQUE: Contiguous axial images were obtained from the level of the diaphragm to the pubic symphysis with intravenous contrast. Coronal and sagittal reconstructions were likewise performed and indicated to increase the sensitivity for detecting clinically relevant pathology. If IV contrast material had not been administered, the likelihood of detecting abnormalities relevant to the patient's condition would have been substantially decreased. CT scan was performed according to ALARA (as low as reasonably achievable). COMPARISON: September 24/2025 19:31:29 CORPORATE WELLNESS COORDINATOR FINDINGS: The visualized lung bases are clear. The liver is normal in size and attenuation. No focal liver lesions are seen. There is no intra or extrahepatic biliary ductal dilatation. Hepatic vasculature is patent. The gallbladder is present. The spleen, pancreas, and adrenal glands are unremarkable. The kidneys are normal in size and attenuation. There is no hydronephrosis or perinephric fat stranding. No renal calculi or renal masses are identified. The ureters are normal in caliber and no ureteral calculi are seen. The bladder is normal in contour. Pelvic viscera are unremarkable. Diffuse mucosal edema with adjacent fat stranding is noted involving entire length of colon, predominantly left hemicolon - suggest possibility of colitis changes. Multiple small uncomplicated sigmoid colonic diverticulosis Mild free fluid with adjacent fat stranding is noted in pelvis. No imaging evidence of appendicitis. Abdominal and pelvic vasculature is patent. No aggressive appearing osseous lesions are identified. IMPRESSION: Diffuse mucosal edema with adjacent fat stranding is noted involving entire length of colon, predominantly left hemicolon - suggest possibility of colitis changes.-new finding. Multiple small uncomplicated sigmoid colonic diverticulosis-stable. Mild free fluid with adjacent fat stranding is noted in pelvis.-new finding. Electronically signed by Nishant Hurt 02-23-2025 02:40 AM
[2025-02-23] MEDS: ONDANSETRON INJ 2 MG/ML 2 ML VIAL IV STA (03:04)
[2025-02-23] MEDS: MoRPHine SULFATE 4 MG/ML 1 ML CARP\\VIAL IV STA (03:04)
--- NOTE | 2025-02-23 03:04 | History & Physical Report ---
Date of Service February 23, 2025 Assessment & Plan (1) Colitis: Plan: Assessment and plan below following discussion of case with ED provider and reviewing patient history/pertinent normal/abnormal diagnostic test results. Hemorrhagic colitis Patient currently hemodynamically stable. Patient nontoxic and not septic. Rule out infectious causes Hypertension, slightly elevated secondary to illness Troponin elevation likely secondary to BP elevation hx PSVT valvular heart disease (moderate MR/moderate TR, TTE 2024) GERD, on PPI hx gastroparesis IPMN, stable measurement on outpatient MRI from last year. acoustic neuroma status post surgery hyperglycemia rule out DM Admit to med/tele given troponin elevation Clear liquid diet Stool cultures, stool C. difficile Ceftriaxone, Flagyl for hemorrhagic colitis DC above antibiotics and changed to oral vancomycin if stool C. difficile positive GI consult if with persistent bleeding and C. difficile negative Follow troponin, facilitate home BP meds and titrate as needed Check hemoglobin A1c DVT prophylaxis. SCDs re: GI bleed Full code Text document was generated using [employer] voice recognition software. It may contain grammatical or spelling errors. Kindly contact undersigned for clarification of any documentation item in question. History of Present Illness Chief Complaint: Bloody diarrhea, abdominal pain Primary Care Provider: Silvia Gallegos MD History obtained from patient and records. 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 Last confinement 2018 under Orthopedics service for elective left total knee arthroplasty. Unremarkable postop course. Yesterday afternoon, patient noted achy lower abdominal pain more on the right later followed by bloody diarrhea. No chest pain, no SOB. No fever, no chills. No known sick contacts, recent antibiotic Rx, out-of-town travel. Chronic nausea symptoms. No emesis. No prior episodes. Patient consulted ER for evaluation. SBP 160s upon arrival at the ER. 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 Allergies Allergy/AdvReac Type Severity Reaction Status Date / Time No Known Allergies Allergy Verified 02/23/25 01:09 Home Medications Medication Instructions Recorded Confirmed Type amlodipine 5 mg tablet 2.5 mg PO DAILY 08/31/22 02/23/25 History aspirin 81 mg tablet,delayed 81 mg PO DAILY 08/31/22 02/23/25 History release atorvastatin 20 mg tablet 20 mg PO DAILY 08/31/22 02/23/25 History furosemide 20 mg tablet (Lasix) 20 mg PO DAILY PRN Edema 08/31/22 02/23/25 History lisinopril 20 mg tablet 20 mg PO DAILY 08/31/22 02/23/25 History multivitamin 1 tab PO DAILY 08/31/22 02/23/25 History prochlorperazine maleate 5 mg 5 mg PO Q6 PRN Nausea 08/31/22 02/23/25 History tablet omeprazole 20 mg capsule,delayed 20 mg PO QAM 09/24/24 02/23/25 History release escitalopram oxalate 10 mg tablet 10 mg PO DAILY 02/23/25 02/23/25 History ondansetron 4 mg disintegrating 8 mg PO Q6H PRN NAUSEA/VOMITING 02/23/25 02/23/25 History tablet scopolamine base 1 mg over 3 days 1 mg transdermal Q72H 02/23/25 02/23/25 History transdermal patch Past Med/Surg History Problem List (Updated 02/23/25 @ 04:48 by Juve Nash MD) Colitis Lower gastrointestinal hemorrhage (Acute) Encounter for pre-operative examination Dog bite (Acute) Cellulitis of hand, right (Acute) Medical History (Updated 02/23/25 @ 04:48 by Juve Nash MD) 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/VISIT PCP/CARDIO...STRESS TEST/HEART MONITOR, F/U ON 08/03/18 SOPHIE Bulging disc LUMBAR Osteoarthritis Hyperlipidemia Hypertension Surgical History H/O lumbar discectomy L5 Nausea and vomiting after administration of anesthetic agent History of hand surgery LEFT TENDON History of ear surgery RIGHT ACOUSTIC NEUROMA History of colonoscopy History of total right knee replacement Social History Smoking Status: Never smoker Do You Dip or Chew Tobacco: No; Hx Alcohol Use: No Hx Substance Use: No Preferred Language: Tajik Communication Ability: Effective [employer] Required: No Beliefs That Will Affect Care: None Current Living Situation: Spouse Feels Safe at Home: Yes Assistive Devices: Walker Review of Systems Review of Systems: As per HPI, all other systems reviewed and negative Physical Exam Physical Exam: GENERAL: Comfortable, pleasant, no respiratory distress SKIN: Normal color, warm HEENT: [place] palpebral conjunctivae, no ptosis, dry buccal mucosa NECK : Supple, no tenderness CHEST : CTA, no tenderness HEART : RRR, no obvious murmurs ABDOMEN: Some distention, hypogastric tenderness EXTREMITIES : No LE swelling/tenderness, palpable pulses, no other conspicuous deformities noted NEUROLOGIC : Coherent, no facial asymmetry, no other gross focality Results & Data Results & Data Vital Signs (Past 12 Hours) Vital Signs Temp Pulse Pulse Resp BP BP Pulse Ox 02/23/25 01:45 73 16 154/89 H 95 02/23/25 00:24 70 02/23/25 00:24 76 20 97 02/22/25 23:54 36.5 C 74 16 161/87 H 98 O2 Del Method 02/23/25 01:45 Room Air 02/23/25 00:24 02/23/25 00:24 Room Air 02/22/25 23:54 Room Air Laboratory Results Laboratory Results WBC 9.59 K/ul (4.8-10.8) 02/23/25 00:16 RBC 4.85 M/uL (4.20-5.40) 02/23/25 00:16 Hgb 14.8 g/dl (12.0-16.0) 02/23/25 00:16 Hct 44.4 % (37.0-47.0) 02/23/25 00:16 MCV 91.5 fL (80.0-100.0) 02/23/25 00:16 MCH 30.5 pg (25.0-34.0) 02/23/25 00:16 MCHC 33.3 g/dL (32.0-36.0) 02/23/25 00:16 RDW Std Deviation 44.7 fL (36.4-46.3) 02/23/25 00:16 RDW Coeff of Alix 13.2 % (11.5-14.5) 02/23/25 00:16 Plt Count 122 K/uL (130-400) L 02/23/25 00:16 MPV 11.1 fL (9.4-12.4) 02/23/25 00:16 Immature Gran % (Auto) 0.2 % 02/23/25 00:16 Neut % (Auto) 84.0 % 02/23/25 00:16 Lymph % (Auto) 8.9 % 02/23/25 00:16 Day % (Auto) 6.5 % 02/23/25 00:16 Eos % (Auto) 0.1 % 02/23/25 00:16 Baso % (Auto) 0.3 % 02/23/25 00:16 Neut # (Auto) 8.06 K/uL (1.40-6.50) H 02/23/25 00:16 Lymph # (Auto) 0.85 K/uL (1.20-3.40) L 02/23/25 00:16 Day # (Auto) 0.62 K/uL (0.11-0.59) H 02/23/25 00:16 Eos # (Auto) 0.01 K/uL (0.00-0.50) 02/23/25 00:16 Baso # (Auto) 0.03 K/uL (0.00-0.20) 02/23/25 00:16 Immature Gran # (Auto) 0.02 K/uL (0.01-0.20) 02/23/25 00:16 PT 11.2 Seconds (9.0-12.0) 02/23/25 00:16 INR 1.0 (0.9-1.1) 02/23/25 00:16 Sodium 138 mmol/L (136-145) 02/23/25 00:16 Potassium 3.8 mmol/L (3.5-5.1) 02/23/25 00:16 Chloride 104 mmol/L (98-107) 02/23/25 00:16 Carbon Dioxide 27 mmol/L (21-32) 02/23/25 00:16 Anion Gap 7 (3-11) 02/23/25 00:16 BUN 12 mg/dl (6-23) 02/23/25 00:16 Creatinine 1.06 mg/dl (0.6-1.2) 02/23/25 00:16 Est Cr Clr Drug Dosing 40.9 ml/min 02/23/25 00:16 eGFR 53.77 02/23/25 00:16 BUN/Creatinine Ratio 11.3 (10-20) 02/23/25 00:16 Glucose 112 mg/dl (70-99(Fasting)) H 02/23/25 00:16 Calcium 9.3 mg/dl (8.6-10.3) 02/23/25 00:16 Total Bilirubin 1.0 mg/dl (0.2-1.0) 02/23/25 00:16 AST 16 U/L (13-39) 02/23/25 00:16 ALT 11 U/L (7-52) 02/23/25 00:16 Alkaline Phosphatase 46 U/L (34-104) 02/23/25 00:16 Troponin I High Sens 15.6 pg/ml (0-14) H 02/23/25 00:16 Total Protein 6.5 gm/dl (6.0-8.3) 02/23/25 00:16 Albumin 4.2 gm/dl (3.4-5.0) 02/23/25 00:16 Globulin 2.3 gm/dl (2.5-4.0) L 02/23/25 00:16 Albumin/Globulin Ratio 1.8 (0.9-2) 02/23/25 00:16 Lipase 21 U/L (11-82) 02/23/25 00:16 Urine Color Yellow 02/23/25 02:13 Urine Appearance Clear (Clear) 02/23/25 02:13 Urine pH 7.0 (4.5-7.5) 02/23/25 02:13 Ur Specific [place] 1.030 (1.000-1.030) 02/23/25 02:13 Urine Protein Negative (Negative) 02/23/25 02:13 Urine Glucose (UA) Negative (Negative) 02/23/25 02:13 Urine Ketones Negative (Negative) 02/23/25 02:13 Urine Blood Negative (Negative) 02/23/25 02:13 Urine Nitrite Negative (Negative) 02/23/25 02:13 Urine Bilirubin Negative (Negative) 02/23/25 02:13 Urine Urobilinogen Negative (Negative) 02/23/25 02:13 Ur Leukocyte Esterase Negative (Negative) 02/23/25 02:13 Urine Comment 02/23/25 02:13 Blood Type O Positive 02/23/25 00:06 Antibody Screen NEGATIVE 02/23/25 00:06 Impressions Abdomen/Pelvis CT 02/23/25 00:04 EXAM: CT abd pelvis IV con only CLINICAL HISTORY: Lower abdominal pain, blood per rectum TECHNIQUE: Contiguous axial images were obtained from the level of the diaphragm to the pubic symphysis with intravenous contrast. Coronal and sagittal reconstructions were likewise performed and indicated to increase the sensitivity for detecting clinically relevant pathology. If IV contrast material had not been administered, the likelihood of detecting abnormalities relevant to the patient's condition would have been substantially decreased. CT scan was performed according to ALARA (as low as reasonably achievable). 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 The liver is normal in size and attenuation. No focal liver lesions are seen. There is no intra or extrahepatic biliary ductal dilatation. Hepatic vasculature is patent. The gallbladder is present. The spleen, pancreas, and adrenal glands are unremarkable. The kidneys are normal in size and attenuation. There is no hydronephrosis or perinephric fat stranding. No renal calculi or renal masses are identified. The ureters are normal in caliber and no ureteral calculi are seen. The bladder is normal in contour. Pelvic viscera are unremarkable. Diffuse mucosal edema with adjacent fat stranding is noted involving entire length of colon, predominantly left hemicolon - suggest possibility of colitis changes. Multiple small uncomplicated sigmoid colonic diverticulosis Mild free fluid with adjacent fat stranding is noted in pelvis. No imaging evidence of appendicitis. Abdominal and pelvic vasculature is patent. No aggressive appearing osseous lesions are identified. IMPRESSION: Diffuse mucosal edema with adjacent fat stranding is noted involving entire length of colon, predominantly left hemicolon - suggest possibility of colitis changes.-new finding. Multiple small uncomplicated sigmoid colonic diverticulosis-stable. Mild free fluid with adjacent fat stranding is noted in pelvis.-new finding. Electronically signed by Nishant Hurt 02-23-2025 02:40 AM Diagnostic Findings EKG as per my interpretation :Rate 70, NSR, LAD, LAFB, incomplete RBBB, T wave abnormality septal leads,
[2025-02-23 03:38] LABS: Magnesium 2.1 mg/dl (1.7-2.4)
[2025-02-23] MEDS: metroNIDAZOLE 500 MG/100 ML BAG IV STA (03:53)
[2025-02-23] MEDS: cefTRIAXone SODIUM 2,000 MG/50 ML BAG IV STA (03:53)
[2025-02-23 04:16] LABS: Cdiff Toxin B Gene (2yr or >) Negative Cdiff Gene (Neg)
[2025-02-23 04:48] LABS: Adenovirus F 40/41 PCR Not Detected (NotDetected); Campylobacter PCR Not Detected (NotDetected); Enteroaggregative E.coli(EAEC) Not Detected (NotDetected); Shiga-like Toxin E.coli (STEC) Not Detected (NotDetected); Vibrio species PCR Not Detected (NotDetected)
[2025-02-23 07:04] LABS: Hematocrit (blood only) 42.7 % (37.0-47.0); Hemoglobin 14.8 g/dl (12.0-16.0)
[2025-02-23 07:20] LABS: Hemoglobin A1C 5.8 % (4.5-5.6)
[2025-02-23] MEDS: MULTIVITAMIN TAB PO SCH (08:39)
[2025-02-23] MEDS: ESCITALOPRAM OXALATE 10 MG TAB PO SCH (08:40)
[2025-02-23] MEDS: ATORVASTATIN 20 MG TAB PO SCH (08:40)
[2025-02-23] MEDS: SCOPOLAMINE 1 MG/72 HR TDSY PATCH TD SCH (08:41)
[2025-02-23] MEDS: MoRPHine SULFATE 2 MG/ML CARP IV PRN (10:31)
[2025-02-23] MEDS: PROMETHAZINE 6.25 MG/50.25 ML BAG IV PRN (10:31)
[2025-02-23] MEDS: metroNIDAZOLE 500 MG/100 ML BAG IV SCH (12:03)
[2025-02-23 12:16] LABS: Hematocrit (blood only) 43.7 % (37.0-47.0); Hemoglobin 14.6 g/dl (12.0-16.0)
--- NOTE | 2025-02-23 13:03 | Electrocardiogram Report ---
Test Reason : Blood Pressure : */* mmHG Vent. Rate : 67 BPM Atrial Rate : 67 BPM P-R Int : 140 ms QRS Dur : 90 ms QT Int : 402 ms P-R-T Axes : 37 -23 43 degrees QTcB Int : 424 ms Sinus rhythm with Premature atrial complexes in a pattern of bigeminy Otherwise normal ECG When compared with ECG of 24-Sep-2024 18:17, T wave inversion no longer evident in Lateral leads Confirmed by Bony West ([id number]) on 02/23/2025 1:03:08 PM Referred By: REFERRED SELF Confirmed By: Bony West
[2025-02-23 18:10] LABS: Hematocrit (blood only) 42.0 % (37.0-47.0); Hemoglobin 14.7 g/dl (12.0-16.0)
[2025-02-23] MEDS: METOPROLOL TARTRATE 1 MG/ML VIAL IV STA (22:35)
[2025-02-23] MEDS: ACETAMINOPHEN 325 MG TAB PO PRN (22:39)
--- NOTE | 2025-02-24 01:29 | CT Scan Report ---
Exam(s): CT HEAD Without Contrast EXAM: CT Head Without Intravenous Contrast CLINICAL HISTORY: Reason for exam: zaman, htn. TECHNIQUE: Axial computed tomography images of the head/brain without intravenous contrast. CTDI is 36.9 mGy and DLP is 624.41 mGy-cm. Automated exposure control was utilized for the study. A dose lowering technique was utilized adhering to the principles of ALARA. COMPARISON: No relevant prior studies available. FINDINGS: Brain: There is a tiny rim calcified dural based lesion overlying the right sylvian fissure consistent with a meningioma. No hemorrhage. No significant white matter disease. No edema. Ventricles: Unremarkable. No ventriculomegaly. Bones/joints: Remote right craniotomy. No acute fracture. Soft tissues: Unremarkable. Sinuses: Unremarkable as visualized. No acute sinusitis. Mastoid air cells: Unremarkable as visualized. No mastoid effusion. IMPRESSION: No evidence of acute intracranial pathology. Electronically signed by: Noal Roach MD 02/24/25 01:28 AM
[2025-02-24] MEDS: cefTRIAXone SODIUM 2,000 MG/50 ML BAG IV SCH (06:03)
[2025-02-24 06:39] LABS: Hematocrit (blood only) 38.3 % (37.0-47.0); Hemoglobin 12.8 g/dl (12.0-16.0); Immature Granulocytes # (auto) 0.01 K/uL (0.01-0.20); Immature Granulocytes % (auto) 0.2 %; Mean Corpuscular Hemoglobin 30.5 pg (25.0-34.0); Mean Corpuscular Volume 91.4 fL (80.0-100.0); Platelet Count 104 K/uL (130-400); RDW Standard Deviation 45.1 fL (36.4-46.3); Red Blood Count 4.19 M/uL (4.20-5.40); White Blood Count 6.60 K/ul (4.8-10.8)
[2025-02-24 06:56] LABS: Anion Gap 6.0 (3-11); Blood Urea Nitrogen 10.0 mg/dl (6-23); Calcium 8.3 mg/dl (8.6-10.3); Carbon Dioxide 26.0 mmol/L (21-32); Chloride 108.0 mmol/L (98-107); Creatinine Clr Calc Pharmacy 53.6 ml/min; Glucose 104.0 mg/dl (70-99(Fasting)); Magnesium 2.0 mg/dl (1.7-2.4); Potassium 3.8 mmol/L (3.5-5.1); Sodium 140.0 mmol/L (136-145)
--- NOTE | 2025-02-24 07:48 | Hospitalist Progress Note ---
Date of Service February 24, 2025 Assessment & Plan (1) Colitis: Plan: Hemorrhagic colitis Patient currently hemodynamically stable. Patient nontoxic and not septic. Rule out infectious causes Admitted to med/tele given troponin elevation Clear liquid diet Stool cultures, stool C. difficile - negative Ceftriaxone, Flagyl for hemorrhagic colitis Abdominal pain now resolved but pt continues to have episodes of blood per rectum GI consulted Hypertension, slightly elevated secondary to illness, facilitate home BP meds and titrate as needed Troponin elevation likely secondary to BP elevation hx PSVT valvular heart disease (moderate MR/moderate TR, TTE 2024) GERD, on PPI hx gastroparesis IPMN, stable measurement on outpatient MRI from last year. acoustic neuroma status post surgery hyperglycemia rule out DM, Current hemoglobin A1c 5.8% DVT prophylaxis. SCDs re: GI bleed Full code Admission and Anticipated Discharge Date Admission Date: February 23, 2025 Subjective Pt seen in follow up, blood per rectum, abd. pain, colitis Currently lying in bed in NAD, says she did well in the morning however this afternoon again having blood per rectum Yesterday reported abdominal pain in lower quadrants, that is now resolved She is still complaining of nausea Review of Systems Review of Systems: All systems reviewed & are unremarkable except as noted in Subjective Physical Exam Physical Exam: GENERAL: WD/WN F in NAD SKIN: Normal color, warm HEENT: NC/AT. EOMI. NECK : Supple CHEST : CTA, no tenderness HEART : RRR, no obvious murmurs ABDOMEN: soft, nontender (tender resolved) EXTREMITIES : moves extremities NEUROLOGIC : awake, alert, oriented, no facial asymmetry, speech fluent, moves extremities Results & Data Results & Data Vital Signs (Past 12 Hours) Vital Signs Temp Pulse Pulse Pulse Resp BP BP 02/24/25 07:19 66 02/24/25 03:45 36.5 C 59 L 14 150/72 H 02/23/25 23:00 36.7 C 72 14 162/77 H 02/23/25 22:51 71 153/80 H 02/23/25 22:35 81 150/77 H 02/23/25 21:51 86 02/23/25 21:37 36.9 C 85 18 02/23/25 20:00 70 18 BP Pulse Ox O2 Del Method 02/24/25 07:19 02/24/25 03:45 93 Room Air 02/23/25 23:00 95 Room Air 02/23/25 22:51 02/23/25 22:35 02/23/25 21:51 02/23/25 21:37 161/76 H 94 Room Air 02/23/25 20:00 169/86 H 94 Room Air Laboratory Results 02/24/25 02/23/25 02/23/25 Range/Units 06:11 17:42 11:50 WBC 6.60 (4.8-10.8) K/ul RBC 4.19 L (4.20-5.40) M/uL Hgb 12.8 14.7 14.6 (12.0-16.0) g/dl Hct 38.3 42.0 43.7 (37.0-47.0) % MCV 91.4 (80.0-100.0) fL MCH 30.5 (25.0-34.0) pg MCHC 33.4 (32.0-36.0) g/dL RDW Std Deviation 45.1 (36.4-46.3) fL RDW Coeff of Alix 13.4 (11.5-14.5) % Plt Count 104 L (130-400) K/uL MPV 11.0 (9.4-12.4) fL Immature Gran % (Auto) 0.2 % Neut % (Auto) 70.3 % Lymph % (Auto) 17.4 % Piatt % (Auto) 10.8 % Eos % (Auto) 0.8 % Baso % (Auto) 0.5 % Neut # (Auto) 4.65 (1.40-6.50) K/uL Lymph # (Auto) 1.15 L (1.20-3.40) K/uL Piatt # (Auto) 0.71 H (0.11-0.59) K/uL Eos # (Auto) 0.05 (0.00-0.50) K/uL Baso # (Auto) 0.03 (0.00-0.20) K/uL Immature Gran # (Auto) 0.01 (0.01-0.20) K/uL Sodium 140 (136-145) mmol/L Potassium 3.8 (3.5-5.1) mmol/L Chloride 108 H (98-107) mmol/L Carbon Dioxide 26 (21-32) mmol/L Anion Gap 6 (3-11) BUN 10 (6-23) mg/dl Creatinine 0.81 (0.6-1.2) mg/dl Est Cr Clr Drug Dosing 53.6 ml/min eGFR 74.26 BUN/Creatinine Ratio 12.3 (10-20) Glucose 104 H (70-99(Fasting)) mg/dl Calcium 8.3 L (8.6-10.3) mg/dl Phosphorus 3.1 (2.5-4.9) mg/dl Magnesium 2.0 (1.7-2.4) mg/dl Medications Administered Current Inpatient Medications Acetaminophen (Acetaminophen 325 Mg Tab) 650 mg PO QID PRN PRN Reason: pain/fever Stop: 03/25/25 22:13 Last Admin: 02/23/25 22:39 Dose: 650 mg Amlodipine Besylate (Amlodipine Besylate 5 Mg Tab) 2.5 mg PO DAILY COUNTS INCLUDE 234 BEDS AT THE [facility] Stop: 03/25/25 03:49 Last Admin: 02/23/25 04:44 Dose: 2.5 mg Atorvastatin Calcium (Atorvastatin 20 Mg Tab) 20 mg PO DAILY JEFE Stop: 03/25/25 08:59 Last Admin: 02/23/25 08:40 Dose: 20 mg Escitalopram Oxalate (Escitalopram Oxalate 10 Mg Tab) 10 mg PO DAILY JEFE Stop: 03/25/25 08:59 Last Admin: 02/23/25 08:40 Dose: 10 mg Ceftriaxone Sodium (Rocephin) 2,000 mg in 50 mls @ 100 mls/hr IV Q24H COUNTS INCLUDE 234 BEDS AT THE [facility] Stop: 03/06/25 05:59 Last Infusion: 02/24/25 06:35 Dose: Infused Metronidazole (Flagyl) 500 mg in 100 mls @ 100 mls/hr IV Q8H JEFE; Protocol Stop: 03/05/25 11:59 Last Infusion: 02/24/25 06:02 Dose: Infused Promethazine HCl (Phenergan) 6.25 mg in 50.25 mls @ 201 mls/hr IV Q6H PRN PRN Reason: Nausea And Vomiting Stop: 03/25/25 03:47 Last Infusion: 02/23/25 10:46 Dose: Infused Lisinopril (Lisinopril 20 Mg Tab) 20 mg PO DAILY JEFE Stop: 03/25/25 08:59 Last Admin: 02/23/25 08:40 Dose: 20 mg Morphine Sulfate (Morphine Sulfate 2 Mg/Ml Carp) 2 mg IV Q3H PRN PRN Reason: Pain Stop: 03/09/25 03:47 Last Admin: 02/23/25 22:06 Dose: 2 mg Multivitamins (Multivitamin Tab) 1 tab PO DAILY JEFE Stop: 03/25/25 08:59 Last Admin: 02/23/25 08:39 Dose: 1 tab Oxycodone HCl (Oxycodone Hcl Ir 5 Mg Tab (Immediate Release)) 5 mg PO Q4H PRN PRN Reason: Pain Stop: 03/09/25 03:47 Pantoprazole Sodium (Pantoprazole 40 Mg Tab) 40 mg PO QAM JEFE Stop: 03/25/25 08:59 Last Admin: 02/23/25 08:41 Dose: 40 mg Scopolamine (Scopolamine 1 Mg/72 Hr Tdsy Patch) 1 patch TD Q72H JEFE Stop: 03/25/25 08:59 Last Admin: 02/23/25 08:41 Dose: 1 patch
--- NOTE | 2025-02-24 09:41 | Gastrointestinal Consultation ---
Date of Consultation February 24, 2025 Assessment & Plan (1) Colitis: Pleasant lady with one week of bloody diarrhea that seems to be resolving. CT shows evidence of pancolitis but blood count has remained stable. Pattern of colitis would be unusual for ischemic colitis so I suspect this is a self limi karol infectious colitis. At her age it would be unusual for a new diagnosis of UC but that is possible. I think it is best to observe for now especially in light of improving symptoms. If she gets over this I suggested to her that she get an elective colonoscopy as an outpatient just to make sure all is okay. If symptoms linger then we can do a more urgent procedure. Done now, though, it would be difficult to differentiate between acute process versus chronic IBD. History of Present Illness Reason for Consultation: colitis Attending Physician: Jens Kang MD History of Present Illness 79 year old female who tells me that a week ago this past tuesday she felt some pain in her stomach and had a bowel movement that was "just blood". This persisted over the next week with some stools just being liquid and clear and some being bloody. She battled with this until she came to the hospital late Tuesday night with a "pure blood" stool. She was having lower abdominal pain when she would need to go to the bathroom. She was admitted to the hospital with a normal WBC and normal H/H. Both have remained stable. CT showed evidence of pancolitis. She tells me yesterday she passed bloody liquid but just before my visit she had a small normal appearing stool without blood. She does not have chronic issues with her bowel movements. She does have intermittent issues with nausea and she says "they can't find anything". She was nauseated during this illness when she had the pain. She denies fever or chlls. She denies NSAID usage. Allergies Allergy/AdvReac Type Severity Reaction Status Date / Time No Known Allergies Allergy Verified 02/23/25 01:09 Home Medications Medication Instructions Recorded Confirmed Type amlodipine 5 mg tablet 2.5 mg PO DAILY 08/31/22 02/23/25 History aspirin 81 mg tablet,delayed 81 mg PO DAILY 08/31/22 02/23/25 History release atorvastatin 20 mg tablet 20 mg PO DAILY 08/31/22 02/23/25 History furosemide 20 mg tablet (Lasix) 20 mg PO DAILY PRN Edema 08/31/22 02/23/25 History lisinopril 20 mg tablet 20 mg PO DAILY 08/31/22 02/23/25 History multivitamin 1 tab PO DAILY 08/31/22 02/23/25 History prochlorperazine maleate 5 mg 5 mg PO Q6 PRN Nausea 08/31/22 02/23/25 History tablet omeprazole 20 mg capsule,delayed 20 mg PO QAM 09/24/24 02/23/25 History release escitalopram oxalate 10 mg tablet 10 mg PO DAILY 02/23/25 02/23/25 History ondansetron 4 mg disintegrating 8 mg PO Q6H PRN NAUSEA/VOMITING 02/23/25 02/23/25 History tablet scopolamine base 1 mg over 3 days 1 mg transdermal Q72H 02/23/25 02/23/25 History transdermal patch Patient History Medical History 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/VISIT PCP/CARDIO...STRESS TEST/HEART MONITOR, F/U ON 08/03/18 SOPHIE Bulging disc LUMBAR Osteoarthritis Hyperlipidemia Hypertension Surgical History H/O lumbar discectomy L5 Nausea and vomiting after administration of anesthetic agent History of hand surgery LEFT TENDON History of ear surgery RIGHT ACOUSTIC NEUROMA History of colonoscopy History of total right knee replacement Social History Smoking Status: Never smoker Second Hand Exposure: No; Do You Dip or Chew Tobacco: No; Tobacco Cessation Education Requested by Patient: No Hx Alcohol Use: No Hx Substance Use: No Preferred Language: Gambian Communication Ability: Effective Boiler Assistant Operator Required: No Beliefs That Will Affect Care: None Current Living Situation: Spouse Current Living Situation Comment: Lives w/ at home Feels Safe at Home: Yes Safety Concerns: Feels Safe At This Time Assistive Devices: Denture - Upper Review of Systems Review of Systems: All systems reviewed & are unremarkable except as noted in HPI & below Physical Exam Physical Exam: Pleasant woman in no distress Constitutional: WD/WN, vitals as above Neck: trachea midline, no thyromegaly Respiratory: normal respiratory effort, lungs clear to auscultation Cardiovascular: RRR, no murmur, no edema Gastrointestinal (Abdomen): Inspection/Auscultation: abdomen normal to inspection Percussion/Palpation: + abdomen tender (diffusely) and abdomen soft Results & Data Vital Signs (Past 12 Hours) Vital Signs Temp Pulse Pulse Resp BP BP BP 02/24/25 08:03 36.8 C 71 18 157/77 H 02/24/25 07:19 66 02/24/25 03:45 36.5 C 59 L 14 150/72 H 02/23/25 23:00 36.7 C 72 14 162/77 H 02/23/25 22:51 71 153/80 H 02/23/25 22:35 81 150/77 H 02/23/25 21:51 86 Pulse Ox O2 Del Method 02/24/25 08:03 93 Room Air 02/24/25 07:19 02/24/25 03:45 93 Room Air 02/23/25 23:00 95 Room Air 02/23/25 22:51 02/23/25 22:35 02/23/25 21:51 Laboratory Results 02/24/25 02/23/25 02/23/25 Range/Units 06:11 17:42 11:50 WBC 6.60 (4.8-10.8) K/ul RBC 4.19 L (4.20-5.40) M/uL Hgb 12.8 14.7 14.6 (12.0-16.0) g/dl Hct 38.3 42.0 43.7 (37.0-47.0) % MCV 91.4 (80.0-100.0) fL MCH 30.5 (25.0-34.0) pg MCHC 33.4 (32.0-36.0) g/dL RDW Std Deviation 45.1 (36.4-46.3) fL RDW Coeff of Alix 13.4 (11.5-14.5) % Plt Count 104 L (130-400) K/uL MPV 11.0 (9.4-12.4) fL Immature Gran % (Auto) 0.2 % Neut % (Auto) 70.3 % Lymph % (Auto) 17.4 % Benzie % (Auto) 10.8 % Eos % (Auto) 0.8 % Baso % (Auto) 0.5 % Neut # (Auto) 4.65 (1.40-6.50) K/uL Lymph # (Auto) 1.15 L (1.20-3.40) K/uL Benzie # (Auto) 0.71 H (0.11-0.59) K/uL Eos # (Auto) 0.05 (0.00-0.50) K/uL Baso # (Auto) 0.03 (0.00-0.20) K/uL Immature Gran # (Auto) 0.01 (0.01-0.20) K/uL Sodium 140 (136-145) mmol/L Potassium 3.8 (3.5-5.1) mmol/L Chloride 108 H (98-107) mmol/L Carbon Dioxide 26 (21-32) mmol/L Anion Gap 6 (3-11) BUN 10 (6-23) mg/dl Creatinine 0.81 (0.6-1.2) mg/dl Est Cr Clr Drug Dosing 53.6 ml/min eGFR 74.26 BUN/Creatinine Ratio 12.3 (10-20) Glucose 104 H (70-99(Fasting)) mg/dl Calcium 8.3 L (8.6-10.3) mg/dl Phosphorus 3.1 (2.5-4.9) mg/dl Magnesium 2.0 (1.7-2.4) mg/dl Diagnostic Findings Abdomen/Pelvis CT 02/23/25 00:04 EXAM: CT abd pelvis IV con only CLINICAL HISTORY: Lower abdominal pain, blood per rectum TECHNIQUE: Contiguous axial images were obtained from the level of the diaphragm to the pubic symphysis with intravenous contrast. Coronal and sagittal reconstructions were likewise performed and indicated to increase the sensitivity for detecting clinically relevant pathology. If IV contrast material had not been administered, the likelihood of detecting abnormalities relevant to the patient's condition would have been substantially decreased. CT scan was performed according to ALARA (as low as reasonably achievable). COMPARISON: September 24/2025 19:31:29 PLASTIC SURGERY COORDINATOR FINDINGS: The visualized lung bases are clear. The liver is normal in size and attenuation. No focal liver lesions are seen. There is no intra or extrahepatic biliary ductal dilatation. Hepatic vasculature is patent. The gallbladder is present. The spleen, pancreas, and adrenal glands are unremarkable. The kidneys are normal in size and attenuation. There is no hydronephrosis or perinephric fat stranding. No renal calculi or renal masses are identified. The ureters are normal in caliber and no ureteral calculi are seen. The bladder is normal in contour. Pelvic viscera are unremarkable. Diffuse mucosal edema with adjacent fat stranding is noted involving entire length of colon, predominantly left hemicolon - suggest possibility of colitis changes. Multiple small uncomplicated sigmoid colonic diverticulosis Mild free fluid with adjacent fat stranding is noted in pelvis. No imaging evidence of appendicitis. Abdominal and pelvic vasculature is patent. No aggressive appearing osseous lesions are identified. IMPRESSION: Diffuse mucosal edema with adjacent fat stranding is noted involving entire length of colon, predominantly left hemicolon - suggest possibility of colitis changes.-new finding. Multiple small uncomplicated sigmoid colonic diverticulosis-stable. Mild free fluid with adjacent fat stranding is noted in pelvis.-new finding. Electronically signed by Nishant Hurt 02-23-2025 02:[address] 02/23/25 22:14 Exam(s): CT HEAD Without Contrast EXAM: CT Head Without Intravenous Contrast CLINICAL HISTORY: Reason for exam: zaman, htn. TECHNIQUE: Axial computed tomography images of the head/brain without intravenous contrast. CTDI is 36.9 mGy and DLP is 624.41 mGy-cm. Automated exposure control was utilized for the study. A dose lowering technique was utilized adhering to the principles of ALARA. COMPARISON: No relevant prior studies available. FINDINGS: Brain: There is a tiny rim calcified dural based lesion overlying the right sylvian fissure consistent with a meningioma. No hemorrhage. No significant white matter disease. No edema. Ventricles: Unremarkable. No ventriculomegaly. Bones/joints: Remote right craniotomy. No acute fracture. Soft tissues: Unremarkable. Sinuses: Unremarkable as visualized. No acute sinusitis. Mastoid air cells: Unremarkable as visualized. No mastoid effusion. IMPRESSION: No evidence of acute intracranial pathology. Electronically signed by: Nola Roach MD 02/24/25 01:28 AM
--- NOTE | 2025-02-25 03:12 | Communication Note ---
Date of Service: February 25, 2025 Patient is very anxious and dry heaving as per RN. Patient requesting to speak someone about mental health. "Patient alluded to having suicidal thoughts at times and "wanting it all to go away," as per RN. Patient without a plan currently as per RN account. AP Fleeting suicidal ideations Psych consult
[2025-02-25 08:58] LABS: Hematocrit (blood only) 40.4 % (37.0-47.0); Hemoglobin 14.2 g/dl (12.0-16.0); Mean Corpuscular Hemoglobin 31.6 pg (25.0-34.0); Mean Corpuscular Volume 90.0 fL (80.0-100.0); Platelet Count 119 K/uL (130-400); RDW Standard Deviation 43.5 fL (36.4-46.3); Red Blood Count 4.49 M/uL (4.20-5.40); White Blood Count 5.71 K/ul (4.8-10.8)
[2025-02-25 09:17] LABS: Anion Gap 11.0 (3-11); Blood Urea Nitrogen 8.0 mg/dl (6-23); Calcium 8.7 mg/dl (8.6-10.3); Carbon Dioxide 24.0 mmol/L (21-32); Chloride 107.0 mmol/L (98-107); Creatinine Clr Calc Pharmacy 58.7 ml/min; Glucose 89.0 mg/dl (70-99(Fasting)); Magnesium 2.0 mg/dl (1.7-2.4); Potassium 3.4 mmol/L (3.5-5.1); Sodium 142.0 mmol/L (136-145)
--- NOTE | 2025-02-25 10:00 | Gastroenterology Progress Note ---
Date of Service February 25, 2025 Assessment & Plan (1) Colitis: Plan: 79 year old female with history of PSVT, valvular heart disease (moderate MR/moderate TR, TTE 2024), hypertension, GERD, gastroparesis, IPMN, internal hemorrhoids, chronic nausea symptoms on scopolamine, migraine, acoustic neuroma status post surgery, skin cancer status post surgery, anxiety/mood disorder admitted through the ED w/ bloody stools. Hemodynamically stable, HGB 14.2 w/o BUN elevation, stool PCR negative, CTAP w/ diffuse mucosal edema with adjacent fat stranding is noted involving entire length of colon, predominantly left hemicolon - suggest possibility of colitis. She notes resolution of the bloody stools, diarrhea is less often and starting to become semi-formed. Continue supportive measures. Recommend OP colonoscopy with her established GI team and [facility] in 6-8 weeks. Please assist w/ follow up with [facility] GI. Continue scheduled anti-emetics. I spent a total of 40 minutes on the date of service in review of patient's record, and previously obtained information in person and appropriate medical visit, discussion and education of plan, with patient and/or caregiver, placing orders for tests/referral/procedures as medically necessary and documentation of pertinent clinical information in patient's medical records for their visit today. Admission and Anticipated Discharge Date Admission Date: February 23, 2025 Supervising Physician Co-Signing Physician Notes I personally saw and examined the patient. I have reviewed the chart and agree with the documentation provided by the BLACK OFF WORKER including discussion about the assessment, treatment and plan. Briefly, her diarrhea has started to become semiformed and her blood has stopped. She has chronic nausea that is present. I suspect a viral greater than bacterial gastroenteritis > ischemia (cultures are all negative). At this point she can follow-up with [facility] outpatient for a colonoscopy based on her symptoms. She can get IV Zofran here and p.o. outpatient. GI will sign off as we have no further recommendations Subjective Pt was seen and evaluated, chart reviewed. Denies abd pain. She reports she has had ongoing nausea. No vomiting today. She notes she had a semi-formed stool thi s AM, small volume. Brown. Blood in stool resolved. Review of Systems Review of Systems: All other findings negative except as noted in HPI. Physical Exam Constitutional: WD/WN, vitals as above Respiratory: normal respiratory effort, lungs clear to auscultation Cardiovascular: Rate/Rhythm: regular rate and regular rhythm Gastrointestinal (Abdomen): normal bowel sounds, soft, nontender, no hepatosplenomegaly Skin: no rashes, warm and dry Results & Data Results & Data Vital Signs (Past 12 Hours) Vital Signs Temp Pulse Pulse Resp BP BP Pulse Ox 02/25/25 08:41 98.4 F 68 16 148/64 H 95 02/25/25 07:54 69 02/25/25 05:46 157/76 H 02/25/25 02:42 97.5 F L 58 L 20 172/82 H 95 02/24/25 22:34 79 02/24/25 22:15 98.2 F 71 16 139/74 97 O2 Del Method 02/25/25 08:41 Room Air 02/25/25 07:54 02/25/25 05:46 02/25/25 02:42 Room Air 02/24/25 22:34 02/24/25 22:15 Room Air Laboratory Results 02/25/25 Range/Units 08:26 WBC 5.71 (4.8-10.8) K/ul RBC 4.49 (4.20-5.40) M/uL Hgb 14.2 (12.0-16.0) g/dl Hct 40.4 (37.0-47.0) % MCV 90.0 (80.0-100.0) fL MCH 31.6 (25.0-34.0) pg MCHC 35.1 (32.0-36.0) g/dL RDW Std Deviation 43.5 (36.4-46.3) fL RDW Coeff of Alix 13.1 (11.5-14.5) % Plt Count 119 L (130-400) K/uL MPV 11.4 (9.4-12.4) fL Sodium 142 (136-145) mmol/L Potassium 3.4 L (3.5-5.1) mmol/L Chloride 107 (98-107) mmol/L Carbon Dioxide 24 (21-32) mmol/L Anion Gap 11 (3-11) BUN 8 (6-23) mg/dl Creatinine 0.74 (0.6-1.2) mg/dl Est Cr Clr Drug Dosing 58.7 ml/min eGFR 82.76 BUN/Creatinine Ratio 10.8 (10-20) Glucose 89 (70-99(Fasting)) mg/dl Calcium 8.7 (8.6-10.3) mg/dl Phosphorus 2.5 (2.5-4.9) mg/dl Magnesium 2.0 (1.7-2.4) mg/dl PG Care Time/CCT Total # of Minutes Spent Total Time Spent with Patient: Total time spent is greater than 50% in coordination of care (as documented) at patient's floor/unit and/or counseling patient: Coding Level of Care Code 79660 SUB INP/OBS CARE 235MIN Diagnoses Colitis K52.9
--- NOTE | 2025-02-25 11:32 | Psychiatric Consultation ---
Date of Consultation February 25, 2025 Impression / Recommendations Impression 79 y/o F presenting with hemorrhagic colitis. Psychiatry consulted for evaluation given complaints of anxiety and intermittent SI. Concerned for generalized anxiety disorder and mild depression. Does not present any acute safety concerns and denies SI. Concern for anxious ruminations impacting sleep quality. She has been on escitalopram 10mg for a while now and was recently started on bupropion XL 150mg a week ago by PCP. Not interested in counseling at this time. Overall, I spent a total of 80 minutes with this case including review of chart records, nursing report, review of lab work, direct evaluation of the patient at bedside, counseling the patient, discussion of the patient with the hospitalist provider, discussion with the psychiatric liaison during clinical rounds, and documentation in the electronic health record. (1) Generalized anxiety disorder: (2) Depression: Plan -Continue Escitalopram 10mg daily -D/c home Bupropion -Start Aripiprazole 2.5mg HS Psych History Identifying Data 79 y/o F presenting with hemorrhagic colitis. Psychiatry consulted for ev aluation given complaints of anxiety and intermittent SI. Chief Complaint Anxiety History of Present Illness Pt endorses recent low mood, trouble falling asleep, low energy and increase in anxious ruminations with fear of her condition and the future. Has been mentally rehearsing what she will do if her passes away including managing the household. Reports while driving she thinks about what might happen if she got into an accident. Denies SI or intent and reports they were fleeting thoughts while driving. Often catastrophizes and makes it difficult to fall asleep. Fearful that she doesn't know the cause of her medical situation. Endorses fair concentration, fair self esteem, derives pleasure from her activities, and sees family regularly. Was started on Lexapro in recent years and denies life long depression or past treatment. Recently was started on Wellbutrin 150mg by PCP 1 week ago. No family history of mental health conditions reported. Allergies Allergy/AdvReac Type Severity Reaction Status Date / Time No Known Allergies Allergy Verified 02/23/25 01:09 Home Medications Medication Instructions Recorded Confirmed Type amlodipine 5 mg tablet 2.5 mg PO DAILY 08/31/22 02/23/25 History aspirin 81 mg tablet,delayed 81 mg PO DAILY 08/31/22 02/23/25 History release atorvastatin 20 mg tablet 20 mg PO DAILY 08/31/22 02/23/25 History furosemide 20 mg tablet (Lasix) 20 mg PO DAILY PRN Edema 08/31/22 02/23/25 History lisinopril 20 mg tablet 20 mg PO DAILY 08/31/22 02/23/25 History multivitamin 1 tab PO DAILY 08/31/22 02/23/25 History prochlorperazine maleate 5 mg 5 mg PO Q6 PRN Nausea 08/31/22 02/23/25 History tablet omeprazole 20 mg capsule,delayed 20 mg PO QAM 09/24/24 02/23/25 History release escitalopram oxalate 10 mg tablet 10 mg PO DAILY 02/23/25 02/23/25 History ondansetron 4 mg disintegrating 8 mg PO Q6H PRN NAUSEA/VOMITING 02/23/25 02/23/25 History tablet scopolamine base 1 mg over 3 days 1 mg transdermal Q72H 02/23/25 02/23/25 History transdermal patch Patient History Medical History (Updated 02/25/25 @ 15:31 by Joni Llanes DO) 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/VISIT PCP/CARDIO...STRESS TEST/HEART MONITOR, F/U ON 08/03/18 SOPHIE Bulging disc LUMBAR Osteoarthritis Hyperlipidemia Hypertension Surgical History H/O lumbar discectomy L5 Nausea and vomiting after administration of anesthetic agent History of hand surgery LEFT TENDON History of ear surgery RIGHT ACOUSTIC NEUROMA History of colonoscopy History of total right knee replacement Social History Smoking Status: Never smoker Second Hand Exposure: No; Do You Dip or Chew Tobacco: No; Tobacco Cessation Education Requested by Patient: No Hx Alcohol Use: No Hx Substance Use: No Preferred Language: American Communication Ability: Effective Tavern Keeper Required: No Beliefs That Will Affect Care: None Current Living Situation: Spouse Current Living Situation Comment: Lives w/ at home Feels Safe at Home: Yes Safety Concerns: Feels Safe At This Time Assistive Devices: None Physical Exam Mental Examination: Appearance: Well Groomed Eye Contact: Maintains Eye Contact Motor Behavior: Unremarkable Speech: Normal Mood: Anxious and Irritable Affect: Constricted Thought Process: Intact and Linear Thought Content: Racing Hallucinations: None Insight: Fair Judgement: Fair Vital Signs (Past 24 Hours): Last Vital Signs Temp 36.9 C 02/25/25 11:04 Pulse 84 02/25/25 11:04 Resp 16 02/25/25 11:04 BP 152/91 H 02/25/25 11:04 Pulse Ox 94 02/25/25 11:04 O2 Del Method Room Air 02/25/25 11:04 Results & Data (PSY) Medications Administered Acetaminophen (Acetaminophen 325 Mg Tab) 650 mg PO QID PRN PRN Reason: pain/fever Stop: 03/25/25 22:13 Last Admin: 02/24/25 19:46 Dose: 650 mg Documented By: Admin: 02/24/25 11:55 Dose: 650 mg Documented By: Admin: 02/23/25 22:39 Dose: 650 mg Documented By: BRAIN Amlodipine Besylate (Amlodipine Besylate 5 Mg Tab) 2.5 mg PO DAILY JEFE Stop: 03/25/25 03:49 Last Admin: 02/25/25 10:08 Dose: 2.5 mg Documented By: prakash Admin: 02/24/25 08:08 Dose: 2.5 mg Documented By: Admin: 02/23/25 04:44 Dose: 2.5 mg Documented By: MINERVA Atorvastatin Calcium (Atorvastatin 20 Mg Tab) 20 mg PO DAILY JEFE Stop: 03/25/25 08:59 Last Admin: 02/25/25 10:09 Dose: 20 mg Documented By: prakash Admin: 02/24/25 08:09 Dose: 20 mg Documented By: Admin: 02/23/25 08:40 Dose: 20 mg Documented By: ASHLEY Escitalopram Oxalate (Escitalopram Oxalate 10 Mg Tab) 10 mg PO DAILY JEFE Stop: 03/25/25 08:59 Last Admin: 02/25/25 10:08 Dose: 10 mg Documented By: prakash Admin: 02/24/25 08:09 Dose: 10 mg Documented By: Admin: 02/23/25 08:40 Dose: 10 mg Documented By: ASHLEY Hydroxyzine HCl (Hydroxyzine Hcl 10 Mg Tab) 10 mg PO QID PRN PRN Reason: Anxiety Stop: 03/27/25 03:09 Last Admin: 02/25/25 03:27 Dose: 10 mg Documented By: BRAIN Ceftriaxone Sodium (Rocephin) 2,000 mg in 50 mls @ 100 mls/hr IV Q24H JEFE Stop: 03/06/25 05:59 Last Infusion: 02/25/25 06:14 Dose: Infused Documented By: Admin: 02/25/25 05:43 Dose: 100 mls/hr Documented By: Infusion: 02/24/25 06:35 Dose: Infused Documented By: Admin: 02/24/25 06:03 Dose: 100 mls/hr Documented By: BRAIN Metronidazole (Flagyl) 500 mg in 100 mls @ 100 mls/hr IV Q8H JEFE; Protocol Stop: 03/05/25 11:59 Last Infusion: 02/25/25 04:37 Dose: Infused Documented By: Admin: 02/25/25 03:40 Dose: 100 mls/hr Documented By: Infusion: 02/24/25 20:46 Dose: Infused Documented By: Admin: 02/24/25 19:45 Dose: 100 mls/hr Documented By: Infusion: 02/24/25 13:04 Dose: Infused Documented By: Admin: 02/24/25 12:01 Dose: 100 mls/hr Documented By: Infusion: 02/24/25 06:02 Dose: Infused Documented By: Admin: 02/24/25 04:56 Dose: 100 mls/hr Documented By: Infusion: 02/23/25 21:53 Dose: Infused Documented By: Admin: 02/23/25 19:56 Dose: 100 mls/hr Documented By: Infusion: 02/23/25 13:03 Dose: Infused Documented By: Admin: 02/23/25 12:03 Dose: 100 mls/hr Documented By: ASHLEY Promethazine HCl (Phenergan) 6.25 mg in 50.25 mls @ 201 mls/hr IV Q6H PRN PRN Reason: Nausea And Vomiting Stop: 03/25/25 03:47 Last Infusion: 02/25/25 11:27 Dose: Infused Documented By: prakash Admin: 02/25/25 11:03 Dose: 201 mls/hr Documented By: prakash Infusion: 02/25/25 03:30 Dose: Infused Documented By: Admin: 02/25/25 03:11 Dose: 201 mls/hr Documented By: Infusion: 02/24/25 12:05 Dose: Infused Documented By: Admin: 02/24/25 11:43 Dose: 201 mls/hr Documented By: Infusion: 02/23/25 10:46 Dose: Infused Documented By: Admin: 02/23/25 10:31 Dose: 201 mls/hr Documented By: ASHLEY Lisinopril (Lisinopril 20 Mg Tab) 20 mg PO DAILY JEFE Stop: 03/25/25 08:59 Last Admin: 02/25/25 10:08 Dose: 20 mg Documented By: prakash Admin: 02/24/25 08:08 Dose: 20 mg Documented By: Admin: 02/23/25 08:40 Dose: 20 mg Documented By: ASHLEY Multivitamins (Multivitamin Tab) 1 tab PO DAILY JEFE Stop: 03/25/25 08:59 Last Admin: 02/25/25 10:09 Dose: 1 tab Documented By: prakash Admin: 02/24/25 08:13 Dose: Not Given Documented By: Admin: 02/23/25 08:39 Dose: 1 tab Documented By: ASHLEY Pantoprazole Sodium (Pantoprazole 40 Mg Tab) 40 mg PO QAM JEFE Stop: 03/25/25 08:59 Last Admin: 02/25/25 10:09 Dose: 40 mg Documented By: prakash Admin: 02/24/25 08:09 Dose: 40 mg Documented By: Admin: 02/23/25 08:41 Dose: 40 mg Documented By: ASHLEY Scopolamine (Scopolamine 1 Mg/72 Hr Tdsy Patch) 1 patch TD Q72H JEFE Stop: 03/25/25 08:59 Last Admin: 02/23/25 08:41 Dose: 1 patch Documented By: ASHLEY [place] [address] IN/OBS CONSULT LVL 5,80M Patient Type New History Comprehensive Exam Comprehensive Medical Decision Making High Complexity Diagnoses Generalized anxiety disorder F41.1 Depression F32.A
--- NOTE | 2025-02-25 15:32 | Hospitalist Progress Note ---
Date of Service February 25, 2025 Assessment & Plan (1) Colitis presumed infectious: (2) Hypertension: (3) Generalized anxiety disorder: (4) Depression: Plan Advance diet, transition to oral antibiotics Reviewed psychiatry recommendations, trial of Abilify at bedtime, discontinue bupropion Reviewed GI recommendations, outpatient GI evaluation approximately 6 to 8 weeks for colonoscopy Anticipate discharge tomorrow Admission and Anticipated Discharge Date Admission Date: February 23, 2025 Subjective Patient overall feeling better. Ready to tolerate and advance diet. No more bloody stools. Events of last night evening reviewed. Patient denies any suicidal thoughts at this time Physical Exam Physical Exam: Constitutional: Alert, nontoxic HEENT: Mucous membranes moist. Lungs: Clear to auscultation, decreased, no wheezes rales or rhonchi CV: S1-S2, regular Abdomen: Soft, mild tenderness, no guarding, no rigidity, no distention Extremities: No significant edema Neuro: No focal deficits Psych: Cooperative, normal mood Results & Data Results & Data Vital Signs (Past 12 Hours) Vital Signs Temp Pulse Pulse Resp BP BP Pulse Ox 02/25/25 13:30 82 02/25/25 11:04 36.9 C 84 16 152/91 H 94 02/25/25 08:41 36.9 C 68 16 148/64 H 95 02/25/25 08:00 02/25/25 07:54 69 02/25/25 05:46 157/76 H O2 Del Method 02/25/25 13:30 02/25/25 11:04 Room Air 02/25/25 08:41 Room Air 02/25/25 08:00 Room Air 02/25/25 07:54 02/25/25 05:46 Diagnostic Findings Reviewed imaging, laboratory and diagnostic studies. Pertinent findings as below. Hemoglobin 14.2 WBCs 5.7 Potassium 3.4
[2025-02-25] MEDS: AMOXICILLIN/CLAVULANATE 875 MG TAB PO SCH (16:51)
[2025-02-25] MEDS: POTASSIUM CHLORIDE CRTAB 20 MEQ TABCR PO STA (16:53)
[2025-02-25] MEDS: POTASSIUM CHLORIDE CRTAB 20 MEQ TABCR PO ONE (19:59)
[2025-02-26 08:10] VITALS: TEMP 98.2
--- NOTE | 2025-02-26 09:07 | Discharge Summary ---
Discharge Summary Date of Service February 26, 2025 Principal Dx & Hospital Course #1 = Principal Diagnosis (1) Colitis presumed infectious: (2) Hypertension: (3) Generalized anxiety disorder: (4) Depression: Plan Patient 79-year-old female presented to the emergency room with complaints of abdominal pain and bloody diarrhea. Patient was referred for evaluation and admission for the symptoms. Patient was admitted to the hospital. Treated for presumed infectious colitis with antibiotics. GI consultation was obtained. Patient improved with antibiotics. Stool BioFire was nondiagnostic. She did not have any evidence of C. difficile. She steadily improved. GI felt that there was no indication for inpatient colonoscopy and recommended that patient follow-up with outpatient GI and consider colonoscopy in 6 to 8 weeks after she is completely improved from this acute episode. During hospitalization she did express some dismay over her medical condition some brief suicidal thoughts. Psychiatry consultation was obtained. They recommend she continue on Celexa. They had suggested Abilify at bedtime, she is not did not really want to try that here in the hospital. She had no further suicidal ideation. She was safe to discharge home. On the morning of discharge she had tolerated her meals previously her vital signs are stable. She had no further bloody stools. Her hemoglobin was stable. She be discharged home to complete a course of oral antibiotics and follow-up with outpatient providers and discuss further outpatient treatment of some anxiety and depression with her PCP. Notes For Next Care Provider Patient may need additional therapies for anxiety depression. Psychiatry recommended continuing Celexa, considering Abilify at bedtime. recommended stopping bupropion. Medication Changes From Visit Augmentin for presumed infectious colitis Admission HPI Per Admitting Provider History obtained from patient and records. 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 Last confinement 2018 under Orthopedics service for elective left total knee arthroplasty. Unremarkable postop course. Yesterday afternoon, patient noted achy lower abdominal pain more on the right later followed by bloody diarrhea. No chest pain, no SOB. No fever, no chills. No known sick contacts, recent antibiotic Rx, out-of-town travel. Chronic nausea symptoms. No emesis. No prior episodes. Patient consulted ER for evaluation. SBP 160s upon arrival at the ER. 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 Admission Exam Per Admitting Provider See H&P Discharge Exam Constitutional: Alert, nontoxic HEENT: Mucous membranes moist. Lungs: Clear to auscultation, decreased, no wheezes rales or rhonchi CV: S1-S2, regular Abdomen: Soft, nontender, nondistended, no guarding, no rigidity Extremities: No significant edema Neuro: No focal deficits Psych: Cooperative, normal mood Updated Medication List Medication Instructions Recorded Confirmed Type amlodipine 5 mg tablet 2.5 mg PO DAILY 08/31/22 02/23/25 History aspirin 81 mg tablet,delayed 81 mg PO DAILY 08/31/22 02/23/25 History release atorvastatin 20 mg tablet 20 mg PO DAILY 08/31/22 02/23/25 History furosemide 20 mg tablet (Lasix) 20 mg PO DAILY PRN Edema 08/31/22 02/23/25 History lisinopril 20 mg tablet 20 mg PO DAILY 08/31/22 02/23/25 History multivitamin 1 tab PO DAILY 08/31/22 02/23/25 History prochlorperazine maleate 5 mg 5 mg PO Q6 PRN Nausea 08/31/22 02/23/25 History tablet omeprazole 20 mg capsule,delayed 20 mg PO QAM 09/24/24 02/23/25 History release escitalopram oxalate 10 mg tablet 10 mg PO DAILY 02/23/25 02/23/25 History ondansetron 4 mg disintegrating 8 mg PO Q6H PRN NAUSEA/VOMITING 02/23/25 02/23/25 History tablet scopolamine base 1 mg over 3 days 1 mg transdermal Q72H 02/23/25 02/23/25 History transdermal patch amoxicillin 875 mg-potassium 1 tab PO BIDM 4 days #8 tabs 02/26/25 Rx clavulanate 125 mg tablet Hospital Stay Data Consultations 02/23/25 03:02 ED Decision to Admit Stat 02/23/25 16:45 Consult Gastroenterology Routine 02/25/25 03:10 Consult Psychiatry Routine Diagnostic Imagining Performed 02/23/25 00:04 CT Abd and Pelvis [CT abd pelvis IV con only] Stat 02/23/25 22:14 CT head/brain wo con Stat Reviewed imaging, laboratory and diagnostic studies. Pertinent findings as below. Hemoglobin 14.2 WBCs 5.7 Platelets of 119 Urinalysis unremarkable Stool bio fire negative Stool for C. difficile toxin negative Pending Results Patient Have Any Pending Studies at Discharge: No Discharge Instructions Given to Patient (Per Discharging Provider) Complete course of antibiotics Stop bupropion. Communicate with your PCP about ongoing management of your anxiety and mild depression Total Time Total Time Spent Total Time Spent (In Minutes): 26
[2025-02-26 10:51] VITALS: BP 144/75; PULSE 81; RESP 18; O2SAT 95
--- NOTE | 2025-02-27 08:34 | Coding Query ---
CODING QUERY To promote full compliance with coding requirements relating to patient care, provider participation is requested in all cases of gyro mechanic uncertainty. Please assist us with the question(s) below: Coding Question(s): Infectious Colitis is documented in the record and on the Discharge Summary, and the 02/25 Gastroenterology Progress Note Supervising Physician documents, "I suspect a viral greater than bacterial gastroenteritis > ischemia (cultures are all negative)", and the Discharge Summary documents, "Colitis presumed infectious", and, "Treated for presumed infectious colitis with antibiotics. GI consultation was obtained. Patient improved with antibiotics". Regarding Infectious Colitis, please specify below, in your clinical opinion: ( ) Infectious Colitis is most likely Viral ( x ) Infectious Colitis is most likely Bacterial ( ) Infectious Colitis is most likely Bacterial and/or Viral equally ( ) Infectious Colitis is most likely Other: Please Specify ( ) Infectious Colitis is most likely Unspecified as to Viral or Bacterial Physician's Response(s): Thank you Cesia Rocha Principal Diagnosis: "that condition established after study, to be chiefly responsible for occasioning the admission of the patient to the hospital for care." Co-Existing Principal Diagnosis: "when two or more diagnoses equally meet the criteria for principal diagnosis as determined by the circumstances of admission, diagnostic work up, and/or therapy provided, and the Alphabetic Index, Tabular List, or another coding guideline does not provide sequencing direction, any one of the diagnoses may be sequenced first." "When the physician has documented what appears to be a current diagnosis in the body of the record, but has not included the diagnosis in the final diagnostic statement, the physician should be asked whether the diagnosis should be added." (Source Coding [facility] 2 QTR90. p3-4) DIONE
== END 2025-02-26 11:14 | disposition home or self-care (01) | DRG 372 ==
LOC: ED 23:51 → SUATTDRO 02-23 03:11 → EDINP 02-23 03:11 → INTOOBSV 02-23 03:11 → EDINP 02-23 04:04 → 2W 02-23 21:55